=== PATIENT | female | born 1980 | race Caucasian/White ===

== ENCOUNTER → 2016-10-15 | Outpatient (CLI) | payer OTHER ==
--- NOTE | 2016-10-15 23:17 | MR ---
EXAMINATION TYPE: MR lumbar spine wo con DATE OF EXAM: 10/15/2016 5:38 PM COMPARISON: 02/03/2012 HISTORY: Chronic back pain x5 years TECHNIQUE: Multiplanar, multisequence images of the lumbar spine were acquired. Findings The lumbar vertebra have normal alignment. There is slight decreased signal in the disks at L4-5 and L5-S1. There is no significant disc space narrowing. There are small posterior disc bulges at L4-5 an d L5-S1. There is developmentally adequate spinal canal. The neural foramina appear widely patent. Th ere is no spinal stenosis. There is no compression fracture. Posterior elements are intact. There is no paraspinal mass. Sacroiliac joints appear normal. IMPRESSION: Small posterior disc bulging at L4-5 and L5-S1. No spinal stenosis. No fracture. No significant fall e compared to old exam.
== END | disposition home or self-care (01) ==
LOC: RADMRIMAIN 17:00
PROVIDERS: ATTEND Family Medicine
DX: M51.17 Intervertebral disc disorders with radiculopathy, lumbosacral region (principal)
CPT/HCPCS: 72148

== ENCOUNTER 2016-12-07 21:05 | Emergency (ER) | payer OTHER ==
[2016-12-07] MEDS ORDERED: HYDROmorphone 1 MG/ML 1 ML SYRINGE IM STA ×2 (21:32→22:43)
--- NOTE | 2016-12-07 21:35 | ED ---
General Adult HPI - General Chief complaint: Back Pain/Injury Stated complaint: Back Pain Time Seen by Provider: 12/07/16 21:21 Source: patient, RN notes reviewed Mode of arrival: wheelchair Limitations: no limitations - History of Present Illness Initial comments: Patient 36-year-old female who presents emergency room today with a chief complaint of increased lower back pain. She does admit that it started this morning after she placed a bag of dog food and the trunk. She states she's been having increased pain in her lower back that she would down the right leg. States he feels down approximately the right calf. Denies any bowel or bladder incontinence or retention. Denies any saddle anesthesia. Patient does admit that she cut her [place], ibuprofen, ice, and heat at home with little relief of the symptoms. Patient does admit that symptoms are worse with certain movements of bending and twisting. She denies any other complaints or symptoms. Patient denies any recent fever, chills, shortness of breath, chest pain, abdominal pain, nausea or vomiting, dysuria or hematuria, constipation or diarrhea, headaches or visual changes, or any other complaints. - Related Data Home Medications Medication Instructions Recorded Confirmed Albuterol Inhaler [Ventolin Hfa 2 puff INHALATION RT-Q6H PRN 06/26/15 12/07/16 Inhaler] SUMAtriptan SUCCINATE [Imitrex] 100 mg PO BID PRN 06/26/15 12/07/16 HYDROcodone/APAP 7.5-325MG [[place] 1 tab PO QID PRN 12/07/16 12/07/16 7.5-325] Ibuprofen [Motrin] 800 mg PO TID PRN 12/07/16 12/07/16 Previous Rx's Medication Instructions Recorded Cyclobenzaprine [Flexeril] 10 mg PO TID #20 tab 12/07/16 Dexamethasone 0.75 mg PO DIRECTED #12 tablet 12/07/16 Allergies Allergy/AdvReac Type Severity Reaction Status Date / Time azithromycin [From Zithromax] Allergy Rash/Hives/ Verified 12/07/16 22:05 Swelling/Di arrhea venom-honey bee Allergy Swelling Verified 12/07/16 22:05 [bee venom (honey bee)] Review of Systems ROS Statement: Those systems with pertinent positive or pertinent negative responses have been documented in the HPI. ROS Other: All systems not noted in ROS Statement are negative. Past Medical History Past Medical History: Asthma Additional Past Medical History / Comment(s): migraines, HPV, PCOS History of Any Multi-Drug Resistant Organisms: None Reported Past Surgical History: No Surgical Hx Reported Additional Past Surgical History / Comment(s): oral surgery Past Anesthesia/Blood Transfusion Reactions: Previous Problems w/ Anesthesia Additional Past Anesthesia/Blood Transfusion Reaction / Comment(s): HAS NEVER RECEIVED ANESTHESIA. Past Psychological History: No Psychological Hx Reported, PTSD Smoking Status: Current every day smoker Past Alcohol Use History: Occasional Past Drug Use History: None Reported - Past Family History Mother Family Medical History: No Reported History General Exam - General Exam Comments Initial Comments: General: The patient is awake and alert, in no distress, and does not appear acutely ill. Neck: The neck is supple, there is no tenderness or JVD. Cardiovascular: There is a regular rate and rhythm. No murmur, rub or gallop is appreciated. Respiratory: Lungs are clear to auscultation, respirations are non-labored, breath sounds are equal. No wheezes, stridor, rales, or rhonchi. Gastrointestinal: Soft, non-distended, non-tender abdomen without masses or organomegaly noted. There is no rebound or guarding present. No CVA tenderness. Bowel sounds are unremarkable. Back: No appearance of the thoracic, lumbar spine. No step-offs forms appreciated. Patient does have mild tenderness lower lumbar from L3 to S1. Does have increased paravertebral tenderness on the right side of the lumbar spine in this area. Musculoskeletal: Normal ROM, no tenderness. Strength 5/5. Sensation intact. Pulses equal bilaterally 2+. Neurological: A&O x 3. CN II-XII intact, There are no obvious motor or sensory deficits. Coordination appears grossly intact. Speech is normal. Skin: Skin is warm and dry and no rashes or lesions are noted. Psychiatric: Cooperative, appropriate mood & affect, normal judgment. Limitations: no limitations Course Vital Signs 12/07/16 21:10 Temperature 97.4 F L Pulse Rate 85 Respiratory 20 Rate Blood Pressure 117/74 O2 Sat by Pulse 98 Oximetry Medical Decision Making - Medical Decision Making X-ray negative for any acute abnormalities. Patient of her musculature in the emergency room has declined. Does admit that she has Flexeril at home but is a prescription to take it as she takes routine testing through the [facility]. Patient is advised to have close follow-up family doctor. Advised to return if there is any bowel or bladder incontinence retention or increase or worsen his symptoms. She states understanding and is in agreement. Disposition Clinical Impression: Acute back pain Disposition: HOME SELF-CARE Condition: Good Instructions: Acute Low Back Pain (ED) Additional Instructions: Please use medication as discussed. Please follow-up with family doctor in the next 2 days. Please return to emergency room if the symptoms increase or worsen or for any other concerns. Prescriptions: Cyclobenzaprine [Flexeril] 10 mg PO TID #20 tab Dexamethasone 0.75 mg PO DIRECTED #12 tablet Referrals: Bossman Quinn MD [Primary Care Provider] - 1-2 days Time of Disposition: 22:44
--- NOTE | 2016-12-07 22:05 | XR ---
EXAMINATION TYPE: XR lumbar spine 2 or 3V DATE OF EXAM: 12/07/2016 COMPARISON: 08/20/2015 HISTORY: Chronic pain TECHNIQUE: 3 views FINDINGS: Lumbar vertebra have normal alignment. Disc spaces are normal. Posterior elements are intac t. Sacroiliac joints appear normal. IMPRESSION: Normal lumbar spine. No change.
[2016-12-07 23:04] VITALS: BP 118/71; PULSE 63; RESP 19; TEMP 98
== END 2016-12-07 23:04 | disposition home or self-care (01) ==
LOC: EC 21:05
DX: M54.5 Low back pain (principal); F17.200 Nicotine dependence, unspecified, uncomplicated; Z88.1 Allergy status to other antibiotic agents; Z91.030 Bee allergy status
CPT/HCPCS: 72100; 99283; 96372 ×2; J1170

== ENCOUNTER → 2017-09-29 | Outpatient (CLI) | payer BC ==
--- NOTE | 2017-09-29 15:46 | US ---
EXAMINATION TYPE: US pelvis complete transvag DATE OF EXAM: 09/29/2017 COMPARISON: 08/23/2014 CLINICAL HISTORY: R10.2 PELVIC PAIN. TECHNIQUE: . Transabdominal sonographic images of the pelvis were acquired. Transvaginal sonographi c images were medically necessary to better assess the following anatomy: Endometrium Date of LMP: 09/24/2017 EXAM MEASUREMENTS: Uterus: 7.1 x 3.0 x 4.2 cm Endometrial Stripe: 0.3 cm Right Ovary: 1.9 x 1.7 x 1.3 cm Left Ovary: 1.8 x 1.4 x 1.4 cm 1. Uterus: Anteverted small nabothian cyst 0.4 cm 2. Endometrium: fluid within 0.4 cm 3. Right Ovary: small follicular cyst 4. Left Ovary: small follicular cysts, largest 0.7x 0.7 x 0.7 cm 5. Bilateral Adnexa: wnl 6. Posterior cul-de-sac: wnl IMPRESSION: 1. A small amount of fluid in endometrium is nonspecific correlate with the patient's menstrual cycle . 2. Bilateral ovarian follicles.
== END | disposition home or self-care (01) ==
LOC: RADUSWWP 14:54
PROVIDERS: ATTEND Obstetrics & Gynecology
DX: R10.2 Pelvic and perineal pain (principal)
CPT/HCPCS: 76830; 76856

== ENCOUNTER → 2018-01-10 | Outpatient (CLI) | payer BC ==
[2018-01-10 12:28] LABS: Basophils % (A) 1 %; Eosinophils # (A) 0.1 k/uL (0-0.7); Eosinophils % (A) 2 %; HCT 39.5 % (34.0-46.0); HGB 12.5 gm/dL (11.4-16.0); Lymphocytes # (A) 1.8 k/uL (1.0-4.8); Lymphocytes % (A) 34 %; MCH 30.9 pg (25.0-35.0); MCHC 31.6 g/dL (31.0-37.0); MCV 97.9 fL (80.0-100.0); Mean Platelet Volume 7.9; Monocytes # (A) 0.3 k/uL (0-1.0); Monocytes % (A) 5 %; Neutrophils # (A) 2.9 k/uL (1.3-7.7); Neutrophils % (A) 57 %; Platelet Count 359 k/uL (150-450); RBC 4.03 m/uL (3.80-5.40); RDW 12.9 % (11.5-15.5); WBC 5.2 k/uL (3.8-10.6)
[2018-01-10 12:38] LABS: Anion Gap 3 mmol/L; Blood Urea Nitrogen 16 mg/dL (7-17); Calcium 9.2 mg/dL (8.4-10.2); Carbon Dioxide 25 mmol/L (22-30); Chloride 112 mmol/L (98-107); Glucose 93 mg/dL (74-99); Potassium 4.6 mmol/L (3.5-5.1); Sodium 140 mmol/L (137-145)
== END | disposition home or self-care (01) ==
LOC: LABWHC1 11:26
PROVIDERS: ATTEND Obstetrics & Gynecology
DX: Z01.812 Encounter for preprocedural laboratory examination (principal)
CPT/HCPCS: 36415; 80048; 85025

== ENCOUNTER 2018-01-20 08:16 | Observation (INO) | payer BC ==
[2018-01-12 11:00] VITALS: BMI 28.8
[~2018-01-20 08:16] MED LIST: DEXAMETHASONE SOD PHOSPHATE 10 MG/ML 1 ML VIAL IV ONE; HYDROmorphone 0.5 MG/0.5 ML SYRINGE IVP PRN; ONDANSETRON 4 MG/2 ML VIAL IVP ONE; ceFAZolin IN SWFI 2 GM/20 ML SYRINGE IVP ONE
--- NOTE | 2018-01-20 08:32 | P.HPOB ---
History of Present Illness H&P Date: 01/20/18 Chief Complaint: Pelvic pain: Post-ablative syndrome Maame is a 37-year-old female who underwent a NovaSure ablation and since that time has had severe pelvic pain. She also continues to have heavy bleeding and this is causing her significant amount of distress. She is unable to function when she is on her cycle due to the severity of both bleeding and her pain and often has to stay in bed. She is scheduled for a robotic-assisted laparoscopic hysterectomy possible SILVER and possible BSO. Risks/benefits/ alternatives to this procedure were discussed with the patient in detail and all questions were answered for her prior to proceeding to the operating room. Past Medical History Past Medical History: Asthma, Cancer, Musculoskeletal Disorder Additional Past Medical History / Comment(s): migraines, HPV, PCOS, hx. cervical cancer 1998, herniated disc History of Any Multi-Drug Resistant Organisms: None Reported Past Surgical History: No Surgical Hx Reported Additional Past Surgical History / Comment(s): oral surgery Past Anesthesia/Blood Transfusion Reactions: Previous Problems w/ Anesthesia Additional Past Anesthesia/Blood Transfusion Reaction / Comment(s): HAS NEVER RECEIVED ANESTHESIA. Smoking Status: Current every day smoker - Past Family History Mother Family Medical History: No Reported History Medications and Allergies Home Medications Medication Instructions Recorded Confirmed Type Albuterol Inhaler [Ventolin Hfa 2 puff INHALATION RT-Q6H PRN 06/26/15 01/12/18 History Inhaler] SUMAtriptan SUCCINATE [Imitrex] 100 mg PO BID PRN 06/26/15 01/12/18 History Ibuprofen [Motrin] 800 mg PO TID PRN 12/07/16 01/12/18 History Citalopram Hydrobromide [CeleXA] 40 mg PO HS 01/12/18 01/12/18 History OXcarbazepine [Trileptal] 300 mg PO BID 01/12/18 01/12/18 History Prazosin HCl 2 mg PO HS 01/12/18 01/12/18 History traZODone HCL 150 mg PO HS PRN 01/12/18 01/12/18 History Allergies Allergy/AdvReac Type Severity Reaction Status Date / Time azithromycin [From Zithromax] Allergy Rash/Hives/ Verified 01/12/18 10:32 Swelling/Di arrhea venom-honey bee Allergy Swelling Verified 01/12/18 10:32 [bee venom (honey bee)] Exam Osteopathic Statement: *. No significant issues noted on an osteopathic structural exam other than those noted in the History and Physical/Consult. - OBG Physical Exam Breast: both: normal (no masses) Abdomen: bowel sounds normal, no diffuse tenderness, no bruit present, no guarding noted, no hepatomegaly, no splenomegaly, no mass Vulva: both: normal Vagina: normal moisture, no discharge Cervix: no lesion, no discharge Uterus: normal size, normal contour Adnexa: both: normal Anus/Rectum: normal perianal skin, no rectal mass, no hemorrhoids, heme negative
[2018-01-20] MEDS ORDERED: LIDOCAINE 1% 20 ML VIAL (10MG/ML) FOR IV START INTRADERMA ONE ×2 (08:47→08:48)
[2018-01-20] MEDS: LACTATED RINGERS 1,000 ML IV SCH ×2 (08:49→14:20)
[2018-01-20] MEDS ORDERED: SUCCINYLCHOLINE CHLORIDE 100 MG/5 ML SYR IV ONE (09:32)
[2018-01-20] MEDS ORDERED: fentaNYL (PF) 50 MCG/ML 2 ML AMP ONE (09:32)
[2018-01-20] MEDS ORDERED: ACETAMINOPHEN IV (For NPO) 1,000 MG/100 ML VIAL ONE (09:32)
[2018-01-20] MEDS ORDERED: PROPOFOL 10 MG/ML 20 ML VIAL IV ONE (09:32)
[2018-01-20] MEDS ORDERED: ePHEDrine SULFATE/0.9% NACL/PF 50 MG/5 ML SYRINGE IV ONE (09:32)
[2018-01-20] MEDS ORDERED: ROCURONIUM BROMIDE 10 MG/ML 10 ML VIAL IV ONE (09:32)
[2018-01-20] MEDS ORDERED: LIDOCAINE 1% INJ 10MG/ML (20 ML MDV) ONE (09:32)
[2018-01-20] MEDS ORDERED: NEOSTIGMINE 1 MG/ML 10 ML VIAL ONE (09:32)
[2018-01-20] MEDS ORDERED: MIDAZOLAM 2 MG/2 ML VIAL ONE (09:32)
[2018-01-20] MEDS ORDERED: GLYCOPYRROLATE 0.2 MG/ML 2 ML VIAL ONE (09:32)
[2018-01-20] MEDS ORDERED: HYDROmorphone (PF) 1 MG/ML ONE (09:32)
[2018-01-20] MEDS ORDERED: LIDOCAINE 1% INJ 10MG/ML (20 ML MDV) SQ ONE ×2 (10:05)
[2018-01-20] MEDS ORDERED: LACTATED RINGERS 1,000 ML IV ONE (10:30)
[2018-01-20] MEDS ORDERED: ONDANSETRON 4 MG/2 ML VIAL IVP PRN (10:51)
[2018-01-20] MEDS ORDERED: Acetaminophen-Codeine 300-30mg TAB PO PRN ×2 (10:51)
[2018-01-20] MEDS ORDERED: SIMETHICONE 80 MG CHEWABLE PO PRN (10:51)
--- NOTE | 2018-01-20 10:57 | P.OP ---
Date of Procedure: 01/20/18 Preoperative Diagnosis: Pelvic pain and menorrhagia: Post ablative syndrome Postoperative Diagnosis: Same Procedure(s) Performed: Robotic-assisted laparoscopic hysterectomy Anesthesia: KEERTHI Surgeon: Albert House Marketing Underwriter #1: Emani Burns Estimated Blood Loss (ml): 10 IV fluids (ml): 1,200 Urine output (ml): 150 Pathology: other (Uterus and cervix) Condition: stable Disposition: floor Operative Findings: No gross pathology Description of Procedure: Patient was taken to the operating suite where a general anesthetic was found be adequate. She was prepped and draped in the normal sterile fashion and placed in dorsal lithotomy position. Initially a weighted speculum was inserted into the vagina and the anterior lip of the cervix was identified and grasped with single-tooth tenaculum. Uterus was then sounded to 7 cm and cervix was dilated. Sutures were placed at 3 and 9. Lydia manipulator was then inserted without difficulty and a Bahena cath was placed. Other incidents were then removed and gloves were changed and attention was turned to the abdominal portion procedure where 2 mL of quarter percent Marcaine was injected periumbilically. Through this injected anesthetic a 5 mm skin incision was made and through this incision under direct visualization with an optical trocar and sleeve the camera was inserted. Once peritoneal placement was assured gas was left fully insufflate the abdomen and patient was then placed in steep Trendelenburg position. 2 lateral ports were then placed approximately 12 cm lateral to the umbilicus. These were made through 8 mm skin incisions and da Dallin ports were placed. Fourth port and sleeve was then inserted through a 1 cm incision between the left lateral and the medial port. And the medial port was then exchanged for a da Dallin port and sleeve. Robot was then brought in and docked. Once this was accomplished I did break scrub and go to the tonsil. Once the console observations the pelvis were noted and the uterus was anteverted and tipped to the right side. Left utero-ovarian ligament was then identified cauterized and cut mesosalpinx tissue and tube were then cauterized and cut and then the round ligament was cauterized transected and anterior and posterior leafs the broad ligament were developed. Bladder flap was then identified and undermined with [place] grasper and incised with the Metzenbaum. This opening was then extended across of the face of the uterus and the bladder was bluntly dissected out of the operative field. [place] was then used to cauterize the vascularity on the left side. Right side of the uterus was then addressed and in a similar fashion developed. Once this was accomplished uterus was pushed all the way in an retroverted and the balloon was blown up and manipulator. Anterior colpotomy was then made and then cheating head when necessary to maintain excellent hemostasis the Metzenbaum was used with monopolar to follow the blue cup in a 360 fashion until the cervix and vagina were . Uterus was then brought into the vagina for maintaining pneumoperitoneum. Pelvis was then irrigated and any small bleeders were addressed to obtain excellent hemostasis. Instruments were then exchanged for Efrain grasper and a make suture cut and using 20 the lock suture the vaginal cuff was closed in a running fashion. Pelvis was then thoroughly irrigated and then instruments were removed and gas was allowed to expel from the abdomen. 5 deep breaths were provided during this process. Dr. Burns close the incisions with 4-0 Vicryl and I did a cystoscopy verify good flow from both ureteral jets. Once accomplished all instruments were removed. Sponge, lap, needle counts were all correct 2. Patient was then taken to the recovery room in stable and satisfactory condition.
[2018-01-20] MEDS ORDERED: fentaNYL (PF) 50 MCG/ML 2 ML AMP IVP ONE ×2 (11:17→11:32)
[2018-01-20] MEDS: diphenhydrAMINE 50 MG/ML 1 ML VIAL IVP ONE ×2 (11:39→11:48)
[2018-01-20] MEDS: MEPERIDINE 50 MG/ML SYRINGE IVP ONE ×2 (11:42→11:49)
[2018-01-20] MEDS: KETOROLAC 30 MG/ML 1 ML VIAL IVP PRN ×2 (12:48→18:39)
[2018-01-20] MEDS ORDERED: MORPHINE SULFATE 4 MG/ML SYRINGE IVP PRN (14:58)
[2018-01-20] MEDS: HYDROcodone/APAP 7.5-325MG 1 EACH TAB PO PRN (20:19)
[2018-01-20 20:46] VITALS: BP 102/62; PULSE 74; RESP 16; TEMP 98.5
[2018-01-21] MEDS: HYDROcodone/APAP 7.5-325MG 1 EACH TAB PO PRN ×2 (02:35→08:32)
[2018-01-21] MEDS: KETOROLAC 30 MG/ML 1 ML VIAL IVP PRN ×2 (02:35→08:33)
--- NOTE | 2018-01-21 07:33 | P.DS ---
Providers Date of admission: 01/20/18 23:58 Expected date of discharge: 01/21/18 Attending physician: Albert House Primary care physician: [facility] Course: Overall Maame is doing very well postop day 1. She is ambulating, voiding, and she is tolerating her diet and she also is passing flatus. Involuting in the halls without difficulty. Voices no points of the generalized pain secondary to surgery. Her vital signs are stable and afebrile. Heart regular, lungs clear, extremities without pain. Abdomen is soft bowel sounds are noted and incisions are intact. Assessment postop day 1. Plan discharged home follow up with me in 1 week. Prescription for [place] was sent to the pharmacy. Discharge instructions are thoroughly reviewed and all questions are answered for her prior to her discharge. She is stable for discharge at this time. Patient Condition at Discharge: Good Plan - Discharge Summary Discharge Rx Participant: Yes New Discharge Prescriptions: New HYDROcodone/APAP 5-325MG [[place] 5-325] 1 tab PO Q4HR PRN 3 Days #18 tab PRN Reason: Pain No Action Albuterol Inhaler [Ventolin Hfa Inhaler] 2 puff INHALATION RT-Q6H PRN PRN Reason: Shortness Of Breath SUMAtriptan SUCCINATE [Imitrex] 100 mg PO BID PRN PRN Reason: Migraine Headache Ibuprofen [Motrin] 800 mg PO TID PRN PRN Reason: Pain OXcarbazepine [Trileptal] 300 mg PO BID Citalopram Hydrobromide [CeleXA] 40 mg PO HS traZODone HCL 150 mg PO HS PRN PRN Reason: sleep Prazosin HCl 2 mg PO HS Discharge Medication List Albuterol Inhaler [Ventolin Hfa Inhaler] 2 puff INHALATION RT-Q6H PRN 06/26/15 [ History] SUMAtriptan SUCCINATE [Imitrex] 100 mg PO BID PRN 06/26/15 [History] Ibuprofen [Motrin] 800 mg PO TID PRN 12/07/16 [History] Citalopram Hydrobromide [CeleXA] 40 mg PO HS 01/12/18 [History] OXcarbazepine [Trileptal] 300 mg PO BID 01/12/18 [History] Prazosin HCl 2 mg PO HS 01/12/18 [History] traZODone HCL 150 mg PO HS PRN 01/12/18 [History] HYDROcodone/APAP 5-325MG [[place] 5-325] 1 tab PO Q4HR PRN 3 Days #18 tab [Rx] Follow up Appointment(s)/Referral(s): Albert House DO [Doctor of Osteopathic Medicine] - 1 Week Activity/Diet/Wound Care/Special Instructions: No heavy lifting, Limit stairs and driving, and pelvic rest. If any high temperatures, heavy bleeding, or severe pain call my office Discharge Disposition: HOME SELF-CARE
== END 2018-01-21 09:15 | disposition home or self-care (01) ==
LOC: OR 08:16 → 6PED 10:45 → OR 23:58
PROVIDERS: ADMIT Obstetrics & Gynecology; ATTEND Obstetrics & Gynecology
DX: N87.9 Dysplasia of cervix uteri, unspecified (principal); N80.0 Endometriosis of uterus; N72 Inflammatory disease of cervix uteri; J45.909 Unspecified asthma, uncomplicated; E28.2 Polycystic ovarian syndrome; N94.89 Other specified conditions associated with female genital organs and menstrual cycle; Z98.890 Other specified postprocedural states; G43.909 Migraine, unspecified, not intractable, without status migrainosus; F17.200 Nicotine dependence, unspecified, uncomplicated; Z79.899 Other long term (current) drug therapy; Z88.1 Allergy status to other antibiotic agents; Z91.030 Bee allergy status; Z86.19 Personal history of other infectious and parasitic diseases; Z85.41 Personal history of malignant neoplasm of cervix uteri
CPT/HCPCS: 58570; S2900; 81025; 84703; 86850; 86900; 86901; 88307

== ENCOUNTER 2018-04-25 09:15 | Emergency (ER) | payer OTHER, BC ==
[2018-04-25 09:22] VITALS: RESP 18; TEMP 98.9
[2018-04-25] MEDS ORDERED: SODIUM CHLORIDE 0.9% 1,000 ML IV STA (09:46)
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
[2018-04-25] MEDS ORDERED: ONDANSETRON 4 MG/2 ML VIAL IVP STA (09:58)
[2018-04-25 10:25] LABS: Basophils # (A) 0.1 k/uL (0-0.2); Basophils % (A) 1 %; Eosinophils # (A) 0.1 k/uL (0-0.7); Eosinophils % (A) 1 %; HCT 42.1 % (34.0-46.0); HGB 13.8 gm/dL (11.4-16.0); Lymphocytes # (A) 1.8 k/uL (1.0-4.8); Lymphocytes % (A) 28 %; MCH 32.4 pg (25.0-35.0); MCHC 32.9 g/dL (31.0-37.0); MCV 98.6 fL (80.0-100.0); Mean Platelet Volume 6.7; Monocytes # (A) 0.4 k/uL (0-1.0); Monocytes % (A) 6 %; Neutrophils # (A) 4.1 k/uL (1.3-7.7); Neutrophils % (A) 62 %; Platelet Count 409 k/uL (150-450); RBC 4.27 m/uL (3.80-5.40); RDW 12.7 % (11.5-15.5); WBC 6.6 k/uL (3.8-10.6)
[2018-04-25 10:38] LABS: Anion Gap 8 mmol/L; Blood Urea Nitrogen 18 mg/dL (7-17); Calcium 9.2 mg/dL (8.4-10.2); Carbon Dioxide 20 mmol/L (22-30); Chloride 112 mmol/L (98-107); Glucose 99 mg/dL (74-99); Sodium 140 mmol/L (137-145); Total Bilirubin 0.5 mg/dL (0.2-1.3); Total Protein 7.2 g/dL (6.3-8.2)
[2018-04-25 10:41] LABS: ALT 21 U/L (9-52); AST 25 U/L (14-36); Alkaline Phosphatase 62 U/L (38-126); Potassium 4.5 mmol/L (3.5-5.1)
[2018-04-25 10:43] LABS: Partial Thromboplastin Time 23.5 sec (22.0-30.0); Prothrombin Time 9.9 sec (9.0-12.0)
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
[2018-04-25 11:08] VITALS: BP 143/87; PULSE 70
== END 2018-04-25 11:18 | disposition home or self-care (01) ==
LOC: EC 09:15
DX: S06.0X0A Concussion without loss of consciousness, initial encounter (principal); S00.83XA Contusion of other part of head, initial encounter; J45.909 Unspecified asthma, uncomplicated; F17.200 Nicotine dependence, unspecified, uncomplicated; Z79.899 Other long term (current) drug therapy; Z88.1 Allergy status to other antibiotic agents; Z91.030 Bee allergy status; V49.40XA Driver injured in collision with unspecified motor vehicles in traffic accident, initial encounter; W22.11XA Striking against or struck by driver side automobile airbag, initial encounter; Y92.410 Unspecified street and highway as the place of occurrence of the external cause
CPT/HCPCS: 36415; 80053; 85025; 85610; 85730; 72125; 70486; 70450; 71260; 74177; 99284; 96374; 96361; J2405; Q9967

== ENCOUNTER 2018-10-25 19:47 | Emergency (ER) | payer BC ==
[2018-10-25] MEDS ORDERED: KETOROLAC 30 MG/ML 1 ML VIAL IVP STA (21:22)
[2018-10-25] MEDS ORDERED: DEXAMETHASONE SOD PHOSPHATE 10 MG/ML 1 ML VIAL IM STA (21:23)
[2018-10-25] MEDS ORDERED: KETOROLAC 30 MG/ML 1 ML VIAL IM STA (22:13)
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
[2018-10-25] MEDS ORDERED: ONDANSETRON 4 MG/2 ML VIAL IVP STA (22:40)
[2018-10-25] MEDS ORDERED: MORPHINE SULFATE 4 MG/ML SYRINGE IVP STA (22:54)
[2018-10-25] MEDS ORDERED: DIAZEPAM 5 MG/ML 2 ML INJ IVP STA (23:57)
[2018-10-26 00:12] LABS: Basophils % (A) 0 %; Eosinophils # (A) 0.1 k/uL (0-0.7); Eosinophils % (A) 1 %; HGB 13.2 gm/dL (11.4-16.0); Lymphocytes # (A) 1.6 k/uL (1.0-4.8); Lymphocytes % (A) 17 %; MCH 31.7 pg (25.0-35.0); MCHC 32.9 g/dL (31.0-37.0); MCV 96.4 fL (80.0-100.0); Mean Platelet Volume 7.6; Monocytes # (A) 0.3 k/uL (0-1.0); Monocytes % (A) 3 %; Neutrophils % (A) 77 %; Platelet Count 339 k/uL (150-450); RBC 4.15 m/uL (3.80-5.40); RDW 14.2 % (11.5-15.5); WBC 9.1 k/uL (3.8-10.6)
[2018-10-26 00:21] LABS: ALT 21 U/L (9-52); AST 15 U/L (14-36); Albumin 4.1 g/dL (3.5-5.0); Alkaline Phosphatase 61 U/L (38-126); Anion Gap 8 mmol/L; Blood Urea Nitrogen 11 mg/dL (7-17); Calcium 9.4 mg/dL (8.4-10.2); Carbon Dioxide 20 mmol/L (22-30); Chloride 110 mmol/L (98-107); Glucose 102 mg/dL (74-99); Sodium 138 mmol/L (137-145); Total Bilirubin 0.4 mg/dL (0.2-1.3); Total Protein 6.9 g/dL (6.3-8.2)
--- NOTE | 2018-10-26 00:39 | CT ---
EXAM: CT Abdomen and Pelvis With Intravenous Contrast CLINICAL HISTORY: ITS.REASON CT Reason: Pain TECHNIQUE: Axial computed tomography images of the abdomen and pelvis with intravenous contrast. CTDI is 17.8 mGy and DLP is 1104 mGy-cm. This CT exam was performed using one or more of the following dose reduction techniques: automated exposure control, adjustment of the mA and/or kV according to patient size, and/or use of iterative reconstruction technique. COMPARISON: CT chest/abdomen/pelvis on 04/25/2018 FINDINGS: Liver: Probable focal fat along the falciform ligament. Hepatomegaly versus Benitez's lobe configuration. Spleen: Normal. No focal lesion. Gallbladder: Normal. No stones or biliary dilatation. Pancreas: Normal. No acute inflammation. No mass. Adrenal glands: Normal. No mass. Kidneys: Normal. No hydronephrosis or obstructing stone. No mass. Bowel: Diverticulosis without evidence of diverticulitis. Normal appendix. Decompressed sigmoid colon and descending colon. Fluid and gas-filled small bowel loops are nonspecific but may represent enteritis or ileus in the appropriate clinical setting. No bowel obstruction or inflammation. Urinary bladder: Normal. No wall thickening or mass. Reproductive organs: Prior hysterectomy. Muscles: No mass. Subcutaneous tissues: Small fat-containing umbilical hernia. Peritoneal space: Normal. No free fluid. Lymph nodes: Normal. No lymphadenopathy. Vessels: Normal. No aneurysm or dissection. Bones: Mild degenerative changes of the spine. No acute fracture or bony lesion. Lung bases: Mild bibasilar atelectasis. IMPRESSION: 1. Fluid and gas-filled small bowel loops are nonspecific but could represent enteritis or ileus in the appropriate clinical setting. 2. No other acute abnormality in the abdomen or pelvis.
--- NOTE | 2018-10-26 00:43 | CT ---
EXAM: CT Lumbar Spine With Intravenous Contrast CLINICAL HISTORY: ITS.REASON CT Reason: Pain TECHNIQUE: Axial computed tomography images of the lumbar spine with intravenous contrast. CTDI is 18.6 mGy and DLP is 638.3 mGy-cm. This CT exam was performed using one or more of the following dose reduction techniques: automated exposure control, adjustment of the mA and/or kV according to patient size, and/or use of iterative reconstruction technique. COMPARISON: MRI lumbar spine on 10/15/2016 FINDINGS: Bones: Normal alignment. No acute fracture or bony lesion. Disc spaces: No subluxation. Mild disc bulges at L3-4 and L4-5 and L5- S1 without significant spinal canal stenosis. Mild bilateral neural foraminal stenoses at L5-S1. Soft tissues: Normal. IMPRESSION: No acute fracture or subluxation. Mild degenerative changes of the lumbar spine. No significant spinal canal stenosis. Mild bilateral neural foraminal stenoses at L5-S1.
[2018-10-26 01:08] VITALS: BP 129/90; PULSE 61; RESP 18; TEMP 97.8
[2018-10-26 01:34] LABS: Appearance,Urine Clear (Clear); Bilirubin,Urine Negative (Negative); Blood,Urine Negative (Negative); Color,Urine Light Yellow; Glucose,Urine (UA) Negative (Negative); Ketones,Urine Negative (Negative); Leukocyte Esterase,Urine Trace (Negative); Mucus,Urine Rare /hpf; Nitrite,Urine Negative (Negative); PH, Urine 5.5 (5.0-8.0); Protein,Urine Negative (Negative); RBC,Urine 2 /hpf (0-5); Specific Gravity,Urine 1.021 (1.001-1.035); Urobilinogen,Urine <2.0 mg/dL (<2.0); WBC,Urine 2 /hpf (0-5)
== END 2018-10-26 01:34 | disposition home or self-care (01) ==
LOC: EC 19:47
DX: M54.5 Low back pain (principal); R11.0 Nausea; J45.909 Unspecified asthma, uncomplicated; F17.200 Nicotine dependence, unspecified, uncomplicated; Z71.6 Tobacco abuse counseling; Z79.899 Other long term (current) drug therapy; Z88.1 Allergy status to other antibiotic agents; Z91.030 Bee allergy status
CPT/HCPCS: 99284; 96374; 96375 ×2; 96372 ×2; J2270; J1100; J2405; J1885; 36415; 72132; 74177; 80053; 81001; 85025

== ENCOUNTER 2019-01-18 17:25 | Emergency (ER) | payer BC ==
[2019-01-18 17:42] VITALS: RESP 18
[2019-01-18] MEDS ORDERED: METOCLOPRAMIDE 5 MG/ML 2 ML VIAL IVP STA (18:06)
[2019-01-18] MEDS ORDERED: diphenhydrAMINE 50 MG/ML 1 ML VIAL IVP STA (18:06)
[2019-01-18] MEDS ORDERED: SODIUM CHLORIDE 0.9% 1,000 ML IV STA (18:06)
[2019-01-18] MEDS ORDERED: ACETAMINOPHEN TAB 500 MG TAB PO STA (18:06)
--- NOTE | 2019-01-18 18:32 | CT ---
EXAMINATION TYPE: CT brain wo con DATE OF EXAM: 01/18/2019 COMPARISON: 04/25/2018 HISTORY: Migrane and nausea CT DLP: 1111.4 mGycm. Automated Exposure Control for Dose Reduction was Utilized. TECHNIQUE: CT scan of the head is performed without contrast. FINDINGS: Ventricles have normal size. There is no mass effect nor midline shift. There is no sign of intracranial hemorrhage. Calvarium is intact. Skull base appears intact. IMPRESSION: Negative CT scan of the brain. No change.
[2019-01-18] MEDS ORDERED: KETOROLAC 30 MG/ML 1 ML VIAL IVP STA (18:44)
--- NOTE | 2019-01-18 18:48 | ED ---
General Adult HPI - General Chief complaint: Headache Stated complaint: Migraine Time Seen by Provider: 01/18/19 17:51 Source: patient, RN notes reviewed Mode of arrival: ambulatory Limitations: no limitations - History of Present Illness Initial comments: 38-year-old female with a past medical history of asthma, migraines, PCOS, hysterectomy presents to the emergency department for a chief complaint of headache. Patient states that this started gradually 3 days ago and has progressively worsened. States that it is across her forehead and to the back of her head bilaterally. Admits to photophobia. Admits to nausea denies vomiting. Patient states she has had similar headaches in the past although this one is lasting longer and feels a little bit worse than normal. Denies any alleviating or aggravating factors. States she usually has a prescription for Imitrex but has not taken this in a while due to improvement in her headaches however has this prescription at the pharmacy right now. States she has also been on antibiotics due to a sinus infection. States this was just started a few days ago. Patient has no other complaints at this time including shortness of breath, chest pain, abdominal pain, nausea or vomiting, or visual changes. - Related Data Home Medications Medication Instructions Recorded Confirmed Albuterol Inhaler [Ventolin Hfa 2 puff INHALATION RT-Q6H PRN 06/26/15 10/25/18 Inhaler] Baclofen 5 mg PO TID PRN 10/25/18 10/25/18 Dextroamphetamine/Amphetamine 20 mg PO QAM 10/25/18 10/25/18 [Adderall Xr] HYDROcodone/APAP 5-325MG [[place] 1 tab PO Q6HR PRN 10/25/18 10/25/18 5-325] Ibuprofen [Motrin] 800 mg PO Q6HR PRN 10/25/18 10/25/18 Sertraline [Zoloft] 100 mg PO HS 10/25/18 10/25/18 lamoTRIgine [LaMICtal] 100 mg PO DAILY 10/25/18 10/25/18 Previous Rx's Medication Instructions Recorded Ondansetron Odt [Zofran Odt] 4 mg PO Q8HR PRN #10 tab 10/26/18 Allergies Allergy/AdvReac Type Severity Reaction Status Date / Time azithromycin [From Zithromax] Allergy Rash/Hives/ Verified 01/18/19 17:38 Swelling/Di arrhea venom-honey bee Allergy Swelling Verified 01/18/19 17:38 [bee venom (honey bee)] Review of Systems ROS Statement: Those systems with pertinent positive or pertinent negative responses have been documented in the HPI. ROS Other: All systems not noted in ROS Statement are negative. Past Medical History Past Medical History: Asthma Additional Past Medical History / Comment(s): migraines, HPV, PCOS History of Any Multi-Drug Resistant Organisms: None Reported Past Surgical History: Hysterectomy Additional Past Surgical History / Comment(s): oral surgery Past Anesthesia/Blood Transfusion Reactions: Previous Problems w/ Anesthesia Additional Past Anesthesia/Blood Transfusion Reaction / Comment(s): HAS NEVER RECEIVED ANESTHESIA. Past Psychological History: Anxiety, Depression, PTSD Smoking Status: Current every day smoker Past Alcohol Use History: Occasional Past Drug Use History: None Reported - Past Family History Mother Family Medical History: No Reported History General Exam Limitations: no limitations General appearance: alert, anxious Head exam: Present: atraumatic, normocephalic, normal inspection Eye exam: Present: normal appearance, PERRL, EOMI. Absent: scleral icterus, conjunctival injection, periorbital swelling ENT exam: Present: normal exam, normal oropharynx, mucous membranes moist, TM's normal bilaterally, normal external ear exam Neck exam: Present: normal inspection, full ROM. Absent: tenderness, meningismus, lymphadenopathy Respiratory exam: Present: normal lung sounds bilaterally. Absent: respiratory distress, wheezes, rales, rhonchi, stridor Cardiovascular Exam: Present: regular rate, normal rhythm, normal heart sounds. Absent: systolic murmur, diastolic murmur, rubs, gallop, clicks Neurological exam: Present: alert, oriented X3, CN II-XII intact, normal gait, other (GCS 15) Expanded Patient oriented to: Present: person, place, time Speech: Present: fluid speech Cranial nerves: EOM's Intact: Normal, Tongue Deviation: Normal, Nystagmus: Normal, Facial Sensation: Normal Cerebellar function: Finger to Nose: Normal Upper motor neuron: Pronator Drift: Normal Sensory exam: Upper Extremity Light Touch: Normal, Upper Extremity Pin Prick: Normal, Lower Extremity Light Touch: Normal, Lower Extremity Pin Prick: Normal Motor strength exam: RUE: 5, LUE: 5, RLE: 5, LLE: 5 Eye Response: (4) open spontaneously Motor Response: (6) obeys commands Verbal Response: (5) oriented [place] Total: 15 Psychiatric exam: Present: normal affect, normal mood Course Vital Signs 01/18/19 17:40 Temperature 98 F Pulse Rate 90 Respiratory 18 Rate Blood Pressure 119/83 O2 Sat by Pulse 98 Oximetry Medical Decision Making - Medical Decision Making 38-year-old female with a past medical history of migraines presents for headache. Started 3 days ago with a gradual onset. No neurologic deficits on exam. Admits to photophobia. Admits to nausea. States this headache feels consistent with previous migraines. States she usually takes Imitrex for her prescriptions at the pharmacy. Patient also has a sinus condition [place] is on antibiotics. Vitals are stable, CT shows negative computed tomography scan of the brain. Patient was initially given migraine cocktail, had improvement of symptoms from a 9 to an 8 on the pain scale. She was given a second migraine cocktail and had improvement from an 8 to a 4. I did offer patient a sphenopalatine teen nerve block which she refused stating "it's not that bad." Patient will be discharged home to follow up with primary care. Recommended return if she has any worsening symptoms. Disposition Clinical Impression: Migraine headache Disposition: HOME SELF-CARE Condition: Good Instructions (If sedation given, give patient instructions): Migraine Headache (ED) Additional Instructions: Please take your migraine medications at home. Please follow-up with primary care in 1-2 days. Return if you have any worsening symptoms. Is patient prescribed a controlled substance at d/c from ED?: No Referrals: Olaf Chappell MD [Primary Care Provider] - 1-2 days Time of Disposition: 20:17
[2019-01-18] MEDS ORDERED: DEXAMETHASONE SOD PHOSPHATE 10 MG/ML 1 ML VIAL IV STA (19:03)
[2019-01-18] MEDS ORDERED: SUMAtriptan SUCCINATE 6 MG/0.5 ML VIAL SQ STA (19:03)
[2019-01-18] MEDS ORDERED: LIDOCAINE 1% INJ 10MG/ML (20 ML MDV) SQ ONE (19:30)
[2019-01-18 20:44] VITALS: BP 123/80; PULSE 56; TEMP 97.9
--- NOTE | 2019-01-23 08:08 | CDI ---
Documentation Clarification OP Dear Cayden DE GUZMAN, PAC Please provide procedure done related to lidocaine administered. Thank you, Rolo Tian Sheet Ironworker If you have any questions, please contact [employer] at [phone] Lidocaine was ultimately not used on this patient as she refused procedure after lidocaine was ordered. MTDD
== END 2019-01-18 20:47 | disposition home or self-care (01) ==
LOC: EC 17:25
DX: G43.909 Migraine, unspecified, not intractable, without status migrainosus (principal); J45.909 Unspecified asthma, uncomplicated; F41.9 Anxiety disorder, unspecified; F32.9 Major depressive disorder, single episode, unspecified; F43.10 Post-traumatic stress disorder, unspecified; F17.200 Nicotine dependence, unspecified, uncomplicated; Z53.29 Procedure and treatment not carried out because of patient's decision for other reasons; Z79.899 Other long term (current) drug therapy; Z88.1 Allergy status to other antibiotic agents; Z91.030 Bee allergy status
CPT/HCPCS: 99284; 96374; 96375 ×3; 96361; 96372; 70450; J3030; J1200; J1100; J2765; J2001; J1885

== ENCOUNTER 2020-03-25 17:21 | Inpatient (IN) | payer BC, OTHER ==
[2020-03-25] MEDS ORDERED: SODIUM CHLORIDE 0.9% 1,000 ML IV STA ×2 (17:46)
[2020-03-25] MEDS ORDERED: MORPHINE SULFATE 4 MG/ML SYRINGE IV STA (17:46)
--- NOTE | 2020-03-25 17:50 | ED ---
Skin/Abscess/FB HPI - General Chief complaint: Skin/Abscess/Foreign Body Stated complaint: MRSA Time Seen by Provider: 03/25/20 17:45 Source: patient, RN notes reviewed, old records reviewed Mode of arrival: ambulatory - History of Present Illness Initial comments: This is a 39-year-old female DF for evaluation known history of MRSA coming in with right knee infection, being treated as an outpatient for MRSA on 2 different antibiotics with clindamycin and Bactrim with no improvement in symptoms, patient is continued drainage and abscess formation. Cellulitis and pain. Patient has full range of motion of the knee has no fevers MD complaint: abscess/boil, discoloration, other (Cellulitis to right knee) -: week(s) Tetanus Up to Date: yes Location: RLE (Right knee) Severity: moderate Severity scale (1-10): 4 Quality: aching Consistency: constant Improves with: none Worsens with: none Context: new medication, recent antibiotic Associated symptoms: denies other symptoms - Related Data Home Medications Medication Instructions Recorded Confirmed Albuterol Inhaler (Mhu) [Ventolin 2 puff INHALATION RT-Q6H PRN 06/26/15 10/25/18 Hfa Inhaler] Baclofen 5 mg PO TID PRN 10/25/18 10/25/18 Dextroamphetamine/Amphetamine 20 mg PO QAM 10/25/18 10/25/18 [Adderall Xr] HYDROcodone/APAP 5-325MG [[place] 1 tab PO Q6HR PRN 10/25/18 10/25/18 5-325] Ibuprofen [Motrin] 800 mg PO Q6HR PRN 10/25/18 10/25/18 Sertraline [Zoloft] 100 mg PO HS 10/25/18 10/25/18 lamoTRIgine [LaMICtal] 100 mg PO DAILY 10/25/18 10/25/18 Previous Rx's Medication Instructions Recorded Ondansetron Odt [Zofran Odt] 4 mg PO Q8HR PRN #10 tab 10/26/18 Allergies Allergy/AdvReac Type Severity Reaction Status Date / Time azithromycin [From Zithromax] Allergy Rash/Hives/ Verified 03/25/20 17:38 Swelling/Di arrhea venom-honey bee Allergy Swelling Verified 03/25/20 17:38 [bee venom (honey bee)] Review of Systems ROS Statement: Those systems with pertinent positive or pertinent negative responses have been documented in the HPI. ROS Other: All systems not noted in ROS Statement are negative. Past Medical History Past Medical History: Asthma Additional Past Medical History / Comment(s): migraines, HPV, PCOS History of Any Multi-Drug Resistant Organisms: None Reported Past Surgical History: Hysterectomy Additional Past Surgical History / Comment(s): oral surgery Past Anesthesia/Blood Transfusion Reactions: Previous Problems w/ Anesthesia Additional Past Anesthesia/Blood Transfusion Reaction / Comment(s): HAS NEVER RECEIVED ANESTHESIA. Past Psychological History: Anxiety, Depression, PTSD Smoking Status: Current every day smoker Past Alcohol Use History: Occasional Past Drug Use History: None Reported - Past Family History Mother Family Medical History: No Reported History General Exam General appearance: alert, in no apparent distress Head exam: Present: atraumatic, normocephalic, normal inspection Eye exam: Present: normal appearance, PERRL, EOMI. Absent: scleral icterus, conjunctival injection, periorbital swelling ENT exam: Present: normal exam, mucous membranes moist Neck exam: Present: normal inspection. Absent: tenderness, meningismus, lymphadenopathy Respiratory exam: Present: normal lung sounds bilaterally. Absent: respiratory distress, wheezes, rales, rhonchi, stridor Cardiovascular Exam: Present: regular rate, normal rhythm, normal heart sounds. Absent: systolic murmur, diastolic murmur, rubs, gallop, clicks GI/Abdominal exam: Present: soft, normal bowel sounds. Absent: distended, tenderness, guarding, rebound, rigid Extremities exam: Present: normal inspection, full ROM, normal capillary refill, other (Right knee is swollen has some surrounding erythema and redness palpation of the full range of motion, patient has multiple open draining wounds, purulence). Absent: tenderness, pedal edema, joint swelling, calf tenderness Back exam: Present: normal inspection Neurological exam: Present: alert, oriented X3, CN II-XII intact Psychiatric exam: Present: normal affect, normal mood Skin exam: Present: warm, dry, intact, normal color. Absent: rash Course Vital Signs 03/25/20 17:35 Temperature 98.6 F Pulse Rate 73 Respiratory 18 Rate Blood Pressure 147/80 O2 Sat by Pulse 100 Oximetry - Reevaluation(s) Reevaluation #1: 03/25/20 19:05 Medical record is reviewed Reevaluation #2: 03/25/20 19:06 Patient is in no significant distress does admit to some mild knee pain Reevaluation #3: 03/25/20 19:06 Spoke patient regarding findings she is agreeable and questions are answered - Consultations Consultation #1: Spoke with Dr. Chappell who agrees to admit this patient Medical Decision Making - Medical Decision Making 39 female with failure of outpatient treatment and she has been on 2 different antibiotics for about a week of right knee abscess abscess is draining but also starting cellulitis [place] for IV antibiotics and wound care - Lab Data Result diagrams: 03/25/20 17:59 03/25/20 17:59 Lab Results 03/25/20 03/25/20 03/25/20 Range/Units 17:59 17:59 17:59 WBC 7.8 (3.8-10.6) k/uL RBC 4.34 (3.80-5.40) m/uL Hgb 14.5 (11.4-16.0) gm/dL Hct 43.8 (34.0-46.0) % MCV 100.9 H (80.0-100.0) fL MCH 33.4 (25.0-35.0) pg MCHC 33.1 (31.0-37.0) g/dL RDW 12.4 (11.5-15.5) % Plt Count 533 H (150-450) k/uL Neutrophils % 48 % Lymphocytes % 41 % Monocytes % 6 % Eosinophils % 2 % Basophils % 1 % Neutrophils # 3.8 (1.3-7.7) k/uL Lymphocytes # 3.2 (1.0-4.8) k/uL Monocytes # 0.5 (0-1.0) k/uL Eosinophils # 0.2 (0-0.7) k/uL Basophils # 0.1 (0-0.2) k/uL PT 9.4 (9.0-12.0) sec INR 0.9 (<1.2) APTT 24.3 (22.0-30.0) sec Sodium 142 (137-145) mmol/L Potassium 3.9 (3.5-5.1) mmol/L Chloride 109 H (98-107) mmol/L Carbon Dioxide 24 (22-30) mmol/L Anion Gap 9 mmol/L BUN 16 (7-17) mg/dL Creatinine 0.66 (0.52-1.04) mg/dL Est GFR (CKD-EPI)AfAm >90 (>60 ml/min/1.73 sqM) Est GFR (CKD-EPI)NonAf >90 (>60 ml/min/1.73 sqM) Glucose 114 H (74-99) mg/dL Plasma Lactic Acid Gilberto (0.7-2.0) mmol/L Calcium 9.9 (8.4-10.2) mg/dL Phosphorus 3.3 (2.5-4.5) mg/dL Magnesium 2.2 (1.6-2.3) mg/dL Total Bilirubin 0.2 (0.2-1.3) mg/dL AST 20 (14-36) U/L ALT 14 (4-34) U/L Alkaline Phosphatase 95 (38-126) U/L Creatine Kinase 104 (30-135) U/L Total Protein 7.4 (6.3-8.2) g/dL Albumin 4.0 (3.5-5.0) g/dL 03/25/20 Range/Units 17:59 WBC (3.8-10.6) k/uL RBC (3.80-5.40) m/uL Hgb (11.4-16.0) gm/dL Hct (34.0-46.0) % MCV (80.0-100.0) fL MCH (25.0-35.0) pg MCHC (31.0-37.0) g/dL RDW (11.5-15.5) % Plt Count (150-450) k/uL Neutrophils % % Lymphocytes % % Monocytes % % Eosinophils % % Basophils % % Neutrophils # (1.3-7.7) k/uL Lymphocytes # (1.0-4.8) k/uL Monocytes # (0-1.0) k/uL Eosinophils # (0-0.7) k/uL Basophils # (0-0.2) k/uL PT (9.0-12.0) sec INR (<1.2) APTT (22.0-30.0) sec Sodium (137-145) mmol/L Potassium (3.5-5.1) mmol/L Chloride (98-107) mmol/L Carbon Dioxide (22-30) mmol/L Anion Gap mmol/L BUN (7-17) mg/dL Creatinine (0.52-1.04) mg/dL Est GFR (CKD-EPI)AfAm (>60 ml/min/1.73 sqM) Est GFR (CKD-EPI)NonAf (>60 ml/min/1.73 sqM) Glucose (74-99) mg/dL Plasma Lactic Acid Gilberto 2.4 H* (0.7-2.0) mmol/L Calcium (8.4-10.2) mg/dL Phosphorus (2.5-4.5) mg/dL Magnesium (1.6-2.3) mg/dL Total Bilirubin (0.2-1.3) mg/dL AST (14-36) U/L ALT (4-34) U/L Alkaline Phosphatase (38-126) U/L Creatine Kinase (30-135) U/L Total Protein (6.3-8.2) g/dL Albumin (3.5-5.0) g/dL - EKG Data -: EKG Interpreted by Me (EKG shows sinus rhythm 72 MD 162 QRS 78 QTc 435) - Radiology Data Radiology results: report reviewed (X-ray knee is negative for acute disease), image reviewed Disposition Clinical Impression: Cellulitis of right knee, Abscess of right knee Disposition: ADMITTED IP TO THIS [facility] Condition: Good Is patient prescribed a controlled substance at d/c from ED?: No Referrals: Olaf Chappell MD [Primary Care Provider] - 1-2 days
[2020-03-25 18:31] LABS: Basophils # (A) 0.1 k/uL (0-0.2); Basophils % (A) 1 %; Eosinophils # (A) 0.2 k/uL (0-0.7); Eosinophils % (A) 2 %; HCT 43.8 % (34.0-46.0); HGB 14.5 gm/dL (11.4-16.0); Lymphocytes # (A) 3.2 k/uL (1.0-4.8); Lymphocytes % (A) 41 %; MCH 33.4 pg (25.0-35.0); MCHC 33.1 g/dL (31.0-37.0); MCV 100.9 fL (80.0-100.0); Mean Platelet Volume 7.3; Monocytes # (A) 0.5 k/uL (0-1.0); Monocytes % (A) 6 %; Neutrophils # (A) 3.8 k/uL (1.3-7.7); Neutrophils % (A) 48 %; Platelet Count 533 k/uL (150-450); RBC 4.34 m/uL (3.80-5.40); RDW 12.4 % (11.5-15.5); WBC 7.8 k/uL (3.8-10.6)
[2020-03-25 18:39] LABS: ALT 14 U/L (4-34); AST 20 U/L (14-36); African American GFR (CKD) >90 (>60 ml/min/1.73 sqM); Alkaline Phosphatase 95 U/L (38-126); Anion Gap 9 mmol/L; Blood Urea Nitrogen 16 mg/dL (7-17); Calcium 9.9 mg/dL (8.4-10.2); Carbon Dioxide 24 mmol/L (22-30); Chloride 109 mmol/L (98-107); Creatine Kinase 104 U/L (30-135); Glucose 114 mg/dL (74-99); INR 0.9 (<1.2); Magnesium 2.2 mg/dL (1.6-2.3); Non-African American GFR(CKD) >90 (>60 ml/min/1.73 sqM); Partial Thromboplastin Time 24.3 sec (22.0-30.0); Phosphorus 3.3 mg/dL (2.5-4.5); Potassium 3.9 mmol/L (3.5-5.1); Prothrombin Time 9.4 sec (9.0-12.0); Sodium 142 mmol/L (137-145); Total Bilirubin 0.2 mg/dL (0.2-1.3); Total Protein 7.4 g/dL (6.3-8.2)
[2020-03-25] MEDS ORDERED: SODIUM CHLORIDE 0.9% 1,000 ML IV ONE (20:10)
[2020-03-25] MEDS: MORPHINE SULFATE 4 MG/ML SYRINGE IVP PRN (20:38)
--- NOTE | 2020-03-25 20:52 | XR ---
Result: History: Pain status post patella wound. Comparison: None available. Technique: 3 views of the right knee. Findings: No acute fracture or dislocation is seen. The visualized osseous structures are in anatomic alignmen t. The joint spaces are preserved. There is no significant knee joint effusion. There is prepatella r soft tissue edema. No radiopaque foreign body. Impression: Prepatellar soft tissue edema without acute osseous abnormality or radiopaque foreign body.
[2020-03-25] MEDS ORDERED: VANCOMYCIN IV PER PHARMACY 1 EACH MISC MISCELLANE PRN (23:07)
[2020-03-25] MEDS ORDERED: ALPRAZolam 0.25 MG TAB PO PRN (23:08)
[2020-03-25] MEDS ORDERED: AMPHETAMINE PO PRN (23:08)
[2020-03-25] MEDS ORDERED: QUEtiapine 25 MG TAB PO PRN (23:08)
[2020-03-25] MEDS ORDERED: DEXTROAMPHETAMINE PO PRN (23:08)
[2020-03-25] MEDS: HYDROcodone/APAP 10-325MG 1 EACH TAB PO PRN (23:28)
[2020-03-25] MEDS: lamoTRIgine 100 MG TAB PO SCH (23:29)
[2020-03-25] MEDS: NICOTINE 21MG/24HR PATCH TRANSDERM SCH (23:30)
[2020-03-25] MEDS: SERTRALINE 100 MG TAB PO SCH (23:31)
[2020-03-25] MEDS: VANCOMYCIN 1,250 MG in SODIUM CHLORIDE 0.9% 250 ML IVPB SCH (23:32)
[2020-03-26] MEDS: MORPHINE SULFATE 4 MG/ML SYRINGE IVP PRN ×3 (02:39→20:25)
[2020-03-26] MEDS: HYDROcodone/APAP 10-325MG 1 EACH TAB PO PRN ×4 (04:32→22:40)
[2020-03-26] MEDS ORDERED: CLINDAMYCIN 150 MG CAP PO SCH (09:00)
[2020-03-26] MEDS ORDERED: ERGOCALCIFEROL 50,000 UNIT CAP PO SCH (09:00)
[2020-03-26] MEDS: buPROPion SR 150 MG TABLET.ER PO SCH ×2 (10:00→20:54)
[2020-03-26] MEDS: Dextroamphetamine/Amphetamine [Adderall] 10 MG Tablet PO SCH (10:02)
[2020-03-26] MEDS: NICOTINE 21MG/24HR PATCH TRANSDERM SCH ×2 (10:02→20:25)
[2020-03-26] MEDS: SERTRALINE 100 MG TAB PO SCH ×2 (10:02→20:54)
[2020-03-26] MEDS ORDERED: HYDROcodone/APAP 5-325MG 1 EACH TAB PO PRN (10:39)
[2020-03-26] MEDS: VANCOMYCIN 1,250 MG in SODIUM CHLORIDE 0.9% 250 ML IVPB SCH (11:26)
--- NOTE | 2020-03-26 14:53 | P.CNOR ---
History of Present Illness - [facility] Consult date: 03/26/20 Consult reason: other History of present illness: patient is a pleasant 39-year-old female seen at bedside assessment consultation for right knee abscess. She states states she developed an abscess in her right knee around March 25, 2020. She does not recall an injury or inciting incident. She's had continued redness, swelling and drainage and pain at the anterior aspect of the right knee. She has failed outpatient oral antibiotic therapy. She was admitted yesterday, March 25, 2020 and started on IV antibiotics. She continues to have pain at the anterior aspect of the right knee. She's currently denying fever or chills. She denies numbness or tingling or calf pain. She denies illicit drug use. She denies other complaints. Review of Systems All systems: negative Constitutional: Denies chills, Denies fever Eyes: denies blurred vision, denies pain Ears, nose, mouth and throat: Denies headache, Denies sore throat Cardiovascular: Denies chest pain, Denies shortness of breath Respiratory: Denies cough Gastrointestinal: Denies abdominal pain, Denies diarrhea, Denies nausea, Denies vomiting Genitourinary: Denies dysuria, Denies hematuria Musculoskeletal: Denies myalgias Integumentary: Denies pruritus, Denies rash Neurological: Denies numbness, Denies weakness Psychiatric: Denies anxiety, Denies depression Endocrine: Denies fatigue, Denies weight change Past Medical History Past Medical History: Asthma Additional Past Medical History / Comment(s): migraines, HPV, Polycystic Ovarian Syndrome History of Any Multi-Drug Resistant Organisms: None Reported Past Surgical History: Hysterectomy Additional Past Surgical History / Comment(s): oral surgery Past Anesthesia/Blood Transfusion Reactions: No Reported Reaction Additional Past Anesthesia/Blood Transfusion Reaction / Comm: HAS NEVER RECEIVED ANESTHESIA. Past Psychological History: Anxiety, Depression, PTSD Smoking Status: Current every day smoker Past Alcohol Use History: Occasional Additional Past Alcohol Use History / Comment(s): started smoking age 17. SMOKES 1 PPD. HAS BEEN SMOKING FOR 17 YRS. occasional alcohol use Past Drug Use History: None Reported - Past Family History Mother Family Medical History: No Reported History Medications and Allergies Home Medications Medication Instructions Recorded Confirmed Type Dextroamphetamine/Amphetamine 20 mg PO DAILY PRN 10/25/18 03/25/20 History [Adderall Xr] HYDROcodone/APAP 5-325MG [[place] 1 tab PO DAILY PRN 10/25/18 03/25/20 History 5-325] Sertraline [Zoloft] 100 mg PO DAILY 10/25/18 03/25/20 History ALPRAZolam [Xanax] 0.25 mg PO DAILY PRN 03/25/20 03/25/20 History Dextroamphetamine/Amphetamine 10 mg PO DAILY 03/25/20 03/25/20 History [Adderall] Ergocalciferol [Vitamin D2 50,000 unit PO Q14D 03/25/20 03/25/20 History (DRISDOL)] Nicotine 21Mg/24Hr Patch [Habitrol] 21 mg TOPICAL DAILY 03/25/20 03/25/20 History QUEtiapine [SEROquel] 25 - 50 mg PO HS PRN 03/25/20 03/25/20 History buPROPion HCL [buPROPion HCL SR] 150 mg PO BID 03/25/20 03/25/20 History clindamycin HCL [Cleocin] 300 mg PO TID 03/25/20 03/25/20 History lamoTRIgine [LaMICtal] 150 mg PO HS 03/25/20 03/25/20 History Allergies Allergy/AdvReac Type Severity Reaction Status Date / Time azithromycin [From Zithromax] Allergy Rash/Hives/ Verified 03/25/20 17:38 Swelling/Di arrhea venom-honey bee Allergy Swelling Verified 03/25/20 17:38 [bee venom (honey bee)] Physical Examination Inspection of the right lower extremity and right knee show open abscess measuring approximately the size of a dime. There is no active bleeding. There is mild erythema around the anterior aspect of the knee but it does not extend proximal or distal. There is no apparent knee effusion. The knee is warm to touch. She has pain with flexion to 120 extension is full. Pain is at the anterior aspect of the knee not the joint itself. Knee appears ligamentously stable. The calf is nontender. Neurovascular status intact with motor and sensation to the right lower extremity. 2+ dorsalis pedis pulse was 2 second capillary refill is present. Results knee x-ray shows no fractures or foreign body. no gas in the soft tissue. - Labs Labs: Abnormal Lab Results - Last 24 Hours (Table) 1003/25/20 03/25/20 Range/Units 17:59 17:59 17:59 MCV 100.9 H (80.0-100.0) fL Plt Count 533 H (150-450) k/uL Chloride 109 H (98-107) mmol/L Glucose 114 H (74-99) mg/dL Plasma Lactic Acid Gilberto 2.4 H* (0.7-2.0) mmol/L C-Reactive Protein (<10.0) mg/L 03/25/20 Range/Units 19:12 MCV (80.0-100.0) fL Plt Count (150-450) k/uL Chloride (98-107) mmol/L Glucose (74-99) mg/dL Plasma Lactic Acid Gilberto (0.7-2.0) mmol/L C-Reactive Protein 39.3 H (<10.0) mg/L H & H 03/25/20 Range/Units 17:59 Hgb 14.5 (11.4-16.0) gm/dL Hct 43.8 (34.0-46.0) % Coagulation 03/25/20 Range/Units 17:59 INR 0.9 (<1.2) Result Diagrams: 03/25/20 17:59 03/25/20 17:59 - Diagnostic results Knee x-ray: report reviewed, image reviewed Assessment and Plan (1) Abscess of right knee Narrative/Plan: It appears she has a focal superficial infection/abcess of the prepatellar bursa area. She has been on IV vancomycin for less than 24 hours. There is no evidence progression or joint involvement. Her white blood cell count is normal and she is afebrile. We'll continue to monitor her clinically as well as await culture results. Should she not improve and/or worsen we may consider I&D but will monitor her progress for now. She may do wound soaks or washes with warm soapy water. Continue wound care and antibiotic coverage per infectious disease. We will continue to follow. Thank you. Current Visit: Yes Status: Acute Priority: Medium Code(s): L02.415 - CUTANEOUS ABSCESS OF RIGHT LOWER LIMB SNOMED Code(s): 57873351 (2) Cellulitis of right knee Current Visit: Yes Status: Acute Priority: Medium Code(s): L03.115 - CELLULITIS OF RIGHT LOWER LIMB SNOMED Code(s): 50171761623199810 Time with Patient: Less than 30
--- NOTE | 2020-03-26 18:18 | PN ---
PROGRESS NOTE DATE OF SERVICE: 03/26/2020 CHIEF COMPLAINT: MRSA cellulitis and furunculosis of the right anterior knee. HISTORY OF PRESENT ILLNESS: This lady is doing well. She has had no fever or chills. Cellulitis has started to recede. PHYSICAL EXAMINATION: There is no effusion. Inflammation in the right knee is definitely improved. The distal leg is normal with good range of motion, sensation and pulses. IMPRESSION: Methicillin-resistant Staphylococcus aeruginosa cellulitis and furunculosis of the right knee. PLAN: Continue with elevation, IV fluids and IV vancomycin. MMODL / IJN: [id number] /
--- NOTE | 2020-03-26 18:18 | HP ---
HISTORY AND PHYSICAL CHIEF COMPLAINT: Progressive infection in the anterior knee. HISTORY OF PRESENT ILLNESS: This is the first known admission for this 39-year-old white female. She came to the office on originally on March 21 after she developed an infection in the right anterior knee over the patella. She was treated at [facility] and given Bactrim DS and came in on March 21 with the infection getting worse. It looked as though there may have been some loculated purulence, which was sharply drained. She was then changed over to clindamycin and came back several days later with the knee being much worse. The cellulitis had extended and there were several areas where purulence was draining. She had no chills or fever. She was admitted for IV antibiotics/vancomycin. REVIEW OF SYSTEMS: She has otherwise not had any trouble. She has had no headaches, neurologic problems, chest pain, cough, shortness of breath, palpitations, heart disease, abdominal pain, nausea, vomiting, hematemesis, melena, hematochezia, jaundice, hepatitis, cirrhosis, hematuria, frequency, urgency, incontinence, renal failure, diabetes, etc. Past medical history, family history, and personal and social histories reveal that she is ALLERGIC TO ZITHROMAX. Medications include: 1. ProAir 2 puffs q.i.d. p.r.n. 2. Bupropion 150 mg twice a day. 3. Nicotine transdermal patches. 4. Xanax 0.25 once a day p.r.n. 5. Lamictal 150 once a day. 6. Zoloft 100 mg once a day. 7. Seroquel 25 mg at night. 8. Adderall 20 mg once a day. 9. Vitamin D 50,000 units a month. 10.Ibuprofen 800 mg q.i.d. p.r.n. Her past history reveals that she has had some trouble with migraines. Surgically she has had a hysterectomy. She does smoke about a pack of cigarettes a day. PHYSICAL EXAMINATION: Temperature is 99, pulse 86, blood pressure 104/68. In general she appeared to be well developed, well nourished, in no acute distress. Skin color was normal. Skin was warm and dry. Lymph nodes were not enlarged. Head, ears, eyes, nose, mouth and throat were normal. Neck veins were not distended. Thyroid was not enlarged. Chest was clear. Cardiac exam demonstrated sinus rhythm and no murmurs or extra sounds. Abdomen was soft, nontender without visceromegaly or masses. Bowel sounds were present. Extremities were normal except for the cellulitis and purulent pustular areas in the right anterior knee. There was no effusion and range of motion was normal. IMPRESSION: Methicillin-resistant Staphylococcus aeruginosa cellulitis and furunculosis of the right knee. PLAN: 1. Bed rest. 2. IV fluids. 3. IV vancomycin. 4. Infectious disease consult. MMODL / IJN: [id number] /
[2020-03-26] MEDS: lamoTRIgine 100 MG TAB PO SCH (20:25)
--- NOTE | 2020-03-26 21:53 | P.CONS ---
History of Present Illness - Reason for Consult Consult date: 03/26/20 Right knee cellulitis Requesting physician: Olaf Chappell - Chief Complaint Right knee pain swelling and redness x 1 week - History of Present Illness Patient is 39 year female presenting to the ER yesterday for evaluation of persistent right knee pain swelling redness and the wound patient mentioned started having area of irritation on the right anterior knee area more than a week ago denies any history of any trauma and may have started as small pimple in the area started getting more swollen and red and painful patient described the pain to be throbbing with intensity of almost 781 fin and no radiation patient has been evaluated in the outpatient setting by the primary care physician with the area has been draining and the patient has been treated with the Bactrim DS and clindamycin on reevaluation he is scheduled to have persistent infection and nonhealing and the patient was advised to the hospital patient was evaluated by the ER physician on the patient is afebrile did have a normal white count patient did have x-rays of the right gluteal tissues prepatellar soft tissue edema without acute bony abnormality or radiopaque foreign body patient was started on vancomycin and infectious disease was consulted for further management of antibiotic therapy Review of Systems Positive point has been mentioned in the HPI rest of the systems are negative Past Medical History Past Medical History: Asthma Additional Past Medical History / Comment(s): migraines, HPV, Polycystic Ovarian Syndrome History of Any Multi-Drug Resistant Organisms: None Reported Past Surgical History: Hysterectomy Additional Past Surgical History / Comment(s): oral surgery Past Anesthesia/Blood Transfusion Reactions: No Reported Reaction Additional Past Anesthesia/Blood Transfusion Reaction / Comm: HAS NEVER RECEIVED ANESTHESIA. Past Psychological History: Anxiety, Depression, PTSD Smoking Status: Current every day smoker Past Alcohol Use History: Occasional Additional Past Alcohol Use History / Comment(s): started smoking age 17. SMOKES 1 PPD. HAS BEEN SMOKING FOR 17 YRS. occasional alcohol use Past Drug Use History: None Reported - Past Family History Mother Family Medical History: No Reported History Medications and Allergies Home Medications Medication Instructions Recorded Confirmed Type Dextroamphetamine/Amphetamine 20 mg PO DAILY PRN 10/25/18 03/25/20 History [Adderall Xr] HYDROcodone/APAP 5-325MG [[place] 1 tab PO DAILY PRN 10/25/18 03/25/20 History 5-325] Sertraline [Zoloft] 100 mg PO DAILY 10/25/18 03/25/20 History ALPRAZolam [Xanax] 0.25 mg PO DAILY PRN 03/25/20 03/25/20 History Dextroamphetamine/Amphetamine 10 mg PO DAILY 03/25/20 03/25/20 History [Adderall] Ergocalciferol [Vitamin D2 50,000 unit PO Q14D 03/25/20 03/25/20 History (DRISDOL)] Nicotine 21Mg/24Hr Patch [Habitrol] 21 mg TOPICAL DAILY 03/25/20 03/25/20 History QUEtiapine [SEROquel] 25 - 50 mg PO HS PRN 03/25/20 03/25/20 History buPROPion HCL [buPROPion HCL SR] 150 mg PO BID 03/25/20 03/25/20 History clindamycin HCL [Cleocin] 300 mg PO TID 03/25/20 03/25/20 History lamoTRIgine [LaMICtal] 150 mg PO HS 03/25/20 03/25/20 History Allergies Allergy/AdvReac Type Severity Reaction Status Date / Time azithromycin [From Zithromax] Allergy Rash/Hives/ Verified 03/25/20 17:38 Swelling/Di arrhea venom-honey bee Allergy Swelling Verified 03/25/20 17:38 [bee venom (honey bee)] Physical Exam Vitals: Vital Signs Temp Pulse Pulse Resp BP BP Pulse Ox 03/26/20 08:00 18 03/26/20 07:46 98.6 F 82 18 109/70 97 03/26/20 00:50 98.1 F 88 99/55 97 03/25/20 22:06 98.5 F 87 16 121/73 96 03/25/20 21:41 87 16 03/25/20 17:35 98.6 F 73 18 147/80 100 Intake and Output 03/25/20 03/26/20 03/26/20 22:59 06:59 14:59 Intake Total 220 Balance 220 Intake: Oral 220 Other: # Voids 1 Weight 70.307 kg GENERAL DESCRIPTION: Middle-aged female lying in bed, no distress. No tachypnea or accessory muscle of respiration use. HEENT: Shows Pallor , no scleral icterus. Oral mucous membrane is dry. No pharyngeal erythema or thrush NECK: Trachea central, no thyromegaly. LUNGS: Unlabored breathing. Clear to auscultation anteriorly. No wheeze or crackle. HEART: S1, S2, regular rate and rhythm. No loud murmur ABDOMEN: Soft, no tenderness , guarding or rigidity, no organomegaly EXTREMITIES: No edema of feet. Right anterior knee area did have a superficial ulceration. Patient did have swelling and redness no purulent drainage and tender to touch SKIN: No rash, no masses palpable. NEUROLOGICAL: The patient is awake, alert, oriented x3, mood and affect normal. Results CBC & Chem 7: 03/25/20 17:59 03/25/20 17:59 Labs: Abnormal Lab Results - Last 24 Hours (Table) 03/25/20 03/25/20 03/25/20 Range/Units 17:59 17:59 17:59 MCV 100.9 H (80.0-100.0) fL Plt Count 533 H (150-450) k/uL Chloride 109 H (98-107) mmol/L Glucose 114 H (74-99) mg/dL Plasma Lactic Acid Gilberto 2.4 H* (0.7-2.0) mmol/L C-Reactive Protein (<10.0) mg/L 03/25/20 Range/Units 19:12 MCV (80.0-100.0) fL Plt Count (150-450) k/uL Chloride (98-107) mmol/L Glucose (74-99) mg/dL Plasma Lactic Acid Gilberto (0.7-2.0) mmol/L C-Reactive Protein 39.3 H (<10.0) mg/L Assessment and Plan Assessment: 1-patient with right anterior knee area pain swelling and redness status post I&D by primary care physician in outpatient setting and the patient has not healed with oral Bactrim and clindamycin therapy feeling outpatient oral antibiotics with concern for prepatellar bursitis and currently outpatient culture positive for MRSA (1) Prepatellar bursitis, right knee Current Visit: Yes Status: Acute Code(s): M70.41 - PREPATELLAR BURSITIS, RIGHT KNEE SNOMED Code(s): 31010910 (2) MRSA (methicillin resistant Staphylococcus aureus) infection Current Visit: Yes Status: Acute Code(s): A49.02 - METHICILLIN RESIS STAPH INFECTION, UNSP SITE SNOMED Code(s): 138988377 Plan: 1- Vancomycin pharmacy to dose target trough of 15 while watching kidney function and Vanco trough closely 2-patient will benefit from orthopedic evaluation possible bursectomy and I&D Will follow on a clinical condition and cultures to further adjust medication if needed Thank you for this consultation will follow this patient along with you Time with Patient: Greater than 30
[2020-03-27] MEDS: VANCOMYCIN 1,250 MG in SODIUM CHLORIDE 0.9% 250 ML IVPB SCH ×2 (00:05→11:29)
[2020-03-27] MEDS: HYDROcodone/APAP 10-325MG 1 EACH TAB PO PRN ×4 (05:44→22:17)
[2020-03-27 06:06] LABS: African American GFR (CKD) >90 (>60 ml/min/1.73 sqM); Non-African American GFR(CKD) >90 (>60 ml/min/1.73 sqM)
[2020-03-27] MEDS: buPROPion SR 150 MG TABLET.ER PO SCH ×2 (09:26→20:38)
[2020-03-27] MEDS: Dextroamphetamine/Amphetamine [Adderall] 10 MG Tablet PO SCH (11:28)
--- NOTE | 2020-03-27 14:00 | P.PN ---
Subjective Progress Note Date: 03/27/20 Principal diagnosis: Right knee abcess/cellulitis Patient is seen at bedside this afternoon. We are following her for right knee prepatellar bursitis/cellulitis/superficial abscess. She feels it has overall improved over the past few days. She is currently receiving IV Vancomycin. She has pain at the anterior knee. She denies pain inside of the knee with ROM. She denies calf pain, numbness, fever, chills, sweating, chest pain, shortness of breath or other. Objective - Vital Signs Vital signs: Vital Signs Temp 98.2 F 03/27/20 12:07 Pulse 74 03/27/20 12:07 Resp 20 03/27/20 12:07 BP 126/81 03/27/20 12:07 Pulse Ox 98 03/27/20 12:07 Intake & Output 03/26/20 03/27/20 03/27/20 18:59 06:59 18:59 Intake Total 220 890 Balance 220 890 Intake: Intake, IV Titration 250 Amount Vancomycin 1,250 mg In 250 Sodium Chloride 0.9% 250 ml @ 125 mls/hr IVPB Q12H [facility] Rx#:[id number] Oral 220 640 Other: # Voids 1 2 1 - Exam Inspection of the right knee shows improving erythema about the prepatellar area. There is a dime-sized superficial abscess with smaller satellite lesions. It is not actively draining or bleeding. There is no obvious fluid collection or fluctuance in the deep or surrounding tissue. There is no progressive erythema. There is no knee effusion. There is tenderness at the anterior knee. There is no pain at the medial or lateral joint line. She can flex to 110 and extend to 0 degrees respectively with no joint pain. The calf is SNT. 2+ DP pulse and less than 2 sec cap refill present. - Constitutional General appearance: Present: no acute distress - Labs CBC & Chem 7: 03/25/20 17:59 03/27/20 05:37 Labs: Microbiology - Last 24 Hours (Table) 03/25/20 17:59 Blood Culture - Preliminary Blood No Growth after 24 hours Assessment and Plan (1) Abscess of right knee Narrative/Plan: It appears her superficial infection/cellultis/abcess of the prepatellar bursa area is stable/improving. She has continued on IV vancomycin. There is no evidence progression or joint involvement. Her white blood cell count continues to be normal and she is afebrile. Blood cultures are negative thus far. CRP is mildly elevated as well as lactic acid. We'll continue to monitor her clinically. She will be placed NPO after midnight and reassess in the am to make further decision regarding possible I and D at that time. Recommend continued wound care and saline or warm soapy irrigations a few times a day. Antibiotic coverage and further care per infectious disease and primary team. We will cont inue to follow. Patient has been discussed with Dr. Brandt. Current Visit: Yes Status: Acute Priority: Medium Code(s): L02.415 - CUTANEOUS ABSCESS OF RIGHT LOWER LIMB SNOMED Code(s): 93211746 (2) Cellulitis of right knee Current Visit: Yes Status: Acute Priority: Medium Code(s): L03.115 - CELLULITIS OF RIGHT LOWER LIMB SNOMED Code(s): 77937235878627969 Time with Patient: Less than 30
[2020-03-27] MEDS: MORPHINE SULFATE 4 MG/ML SYRINGE IVP PRN (16:08)
[2020-03-27] MEDS: KETOROLAC 15 MG/ML 1 ML VIAL IVP PRN (18:33)
[2020-03-27] MEDS: lamoTRIgine 100 MG TAB PO SCH (20:38)
[2020-03-27] MEDS: SERTRALINE 100 MG TAB PO SCH (20:39)
[2020-03-27] MEDS: NICOTINE 21MG/24HR PATCH TRANSDERM SCH (20:39)
--- NOTE | 2020-03-27 22:39 | PN ---
PROGRESS NOTE DATE OF SERVICE: 03/27/2020 CHIEF COMPLAINT: MRSA cellulitis and abscess of the right knee. HISTORY OF PRESENT ILLNESS: This lady is doing fairly well. The knee is not particularly painful for her at the present time. She has had fever and chills. PHYSICAL EXAMINATION: Cellulitis and redness seem to be slowly receding. There are still several areas of open infected ulceration with some purulent drainage. IMPRESSION: Methicillin-resistant Staphylococcus aeruginosa cellulitis and abscess of the right anterior knee. PLAN: Continue with IV vancomycin. MMODL / IJN: [id number] /
[2020-03-28] MEDS: VANCOMYCIN 1,250 MG in SODIUM CHLORIDE 0.9% 250 ML IVPB SCH ×2 (00:24→11:48)
[2020-03-28] MEDS: KETOROLAC 15 MG/ML 1 ML VIAL IVP PRN ×3 (05:51→18:26)
[2020-03-28 07:16] LABS: African American GFR (CKD) >90 (>60 ml/min/1.73 sqM); Non-African American GFR(CKD) >90 (>60 ml/min/1.73 sqM)
[2020-03-28] MEDS: Dextroamphetamine/Amphetamine [Adderall] 10 MG Tablet PO SCH (07:34)
[2020-03-28] MEDS: buPROPion SR 150 MG TABLET.ER PO SCH ×2 (09:55→21:10)
[2020-03-28] MEDS ORDERED: VANCOMYCIN TROUGH DUE 1 EACH MISC MISCELLANE ONE (10:30)
[2020-03-28] MEDS: HYDROcodone/APAP 10-325MG 1 EACH TAB PO PRN ×3 (10:31→21:10)
--- NOTE | 2020-03-28 12:07 | P.PN ---
Subjective Progress Note Date: 03/28/20 Principal diagnosis: Right knee abcess/cellulitis Patient is seen at bedside this morning by Dr. Brandt. We are following her for right knee prepatellar bursitis/cellulitis/superficial abscess. She feels it has continued to overall improve over the past few days. She is currently receiving IV Vancomycin. She has pain at the anterior knee. She denies pain inside of the knee with ROM. She denies calf pain, numbness, fever, chills, sweating, chest pain, shortness of breath or other. She has no new complaints Objective - Vital Signs Vital signs: Vital Signs Temp 97.8 F 03/28/20 08:49 Pulse 76 03/28/20 08:49 Resp 22 03/28/20 08:49 BP 128/74 03/28/20 08:49 Pulse Ox 96 03/28/20 08:49 Intake & Output 03/27/20 03/28/20 03/28/20 18:59 06:59 18:59 Intake Total 240 690 Balance 240 690 Intake: Intake, IV Titration 250 Amount Vancomycin 1,250 mg In 250 Sodium Chloride 0.9% 250 ml @ 125 mls/hr IVPB Q12H [facility] Rx#:[id number] Oral 240 440 Other: # Voids 1 2 1 - Exam Inspection of the right knee shows continued improvement of erythema about the prepatellar area and superficial abscess with smaller satellite lesions. It is not actively draining or bleeding. There is no obvious fluid collection or fluctuance in the deep or surrounding tissue. There is no progressive erythema. There is no knee effusion. There is tenderness at the anterior knee. There is no pain at the medial or lateral joint line. She can flex to 110 and extend to 0 degrees respectively with no joint pain. The calf is SNT. 2+ DP pulse and less than 2 sec cap refill present. - Constitutional General appearance: Present: no acute distress - Labs CBC & Chem 7: 03/25/20 17:59 03/28/20 06:42 Labs: Abnormal Lab Results - Last 24 Hours (Table) 03/28/20 Range/Units 06:42 Creatinine 0.50 L (0.52-1.04) mg/dL Microbiology - Last 24 Hours (Table) 03/25/20 17:59 Blood Culture - Preliminary Blood No Growth after 48 hours Assessment and Plan (1) Abscess of right knee Narrative/Plan: Her superficial infection/cellultis/abcess of the prepatellar bursa area continues to improve. She has continued on IV vancomycin. There is no evidence progression or joint involvement. Her white blood cell count continues to be normal and she is afebrile. Blood cultures are negative thus far. There are no plans for surgical intervention. Recommend continued wound care and saline or warm soapy irrigations a few times a day. Antibiotic coverage and further care per infectious disease and primary team. We will sign off from orthopedic standpoint. Thank you. Current Visit: Yes Status: Acute Priority: Medium Code(s): L02.415 - CUTANEOUS ABSCESS OF RIGHT LOWER LIMB SNOMED Code(s): 75276248 (2) Cellulitis of right knee Current Visit: Yes Status: Acute Priority: Medium Code(s): L03.115 - CELLULITIS OF RIGHT LOWER LIMB SNOMED Code(s): 20331111021557616 Time with Patient: Less than 30
[2020-03-28] MEDS ORDERED: VANCOMYCIN 1,250 MG in SODIUM CHLORIDE 0.9% 250 ML IVPB SCH (19:00)
[2020-03-28] MEDS: SERTRALINE 100 MG TAB PO SCH (21:10)
[2020-03-28] MEDS: lamoTRIgine 100 MG TAB PO SCH (21:11)
[2020-03-28] MEDS: NICOTINE 21MG/24HR PATCH TRANSDERM SCH (21:11)
[2020-03-28] MEDS ORDERED: diphenhydrAMINE 25 MG CAP PO PRN (22:33)
[2020-03-29] MEDS: KETOROLAC 15 MG/ML 1 ML VIAL IVP PRN (00:21)
[2020-03-29] MEDS: HYDROcodone/APAP 10-325MG 1 EACH TAB PO PRN ×2 (07:47→12:02)
[2020-03-29] MEDS: buPROPion SR 150 MG TABLET.ER PO SCH (08:57)
[2020-03-29] MEDS: Dextroamphetamine/Amphetamine [Adderall] 10 MG Tablet PO SCH (09:24)
[2020-03-29 09:57] LABS: African American GFR (CKD) >90 (>60 ml/min/1.73 sqM); Non-African American GFR(CKD) >90 (>60 ml/min/1.73 sqM)
[2020-03-29 13:43] VITALS: BP 132/79; PULSE 69; RESP 20; TEMP 98.3
[2020-03-29] MEDS ORDERED: IBUPROFEN 800 MG TAB PO PRN (14:52)
--- NOTE | 2020-03-30 16:15 | PN ---
PROGRESS NOTE DATE OF SERVICE: 03/28/2020. CHIEF COMPLAINT: MRSA cellulitis and ulcer of the right anterior knee. HISTORY OF PRESENT ILLNESS: This lady is doing fairly well. Her temperature has been down. She is having some discomfort. PHYSICAL EXAMINATION: Chest is clear. Cardiac exam is normal. Abdomen is soft, nontender. She is afebrile. The cellulitis in the right anterior knee is healing quite quickly and the largest ulcerated area is closing, but still has some necrotic tissue. IMPRESSION: MRSA abscess and cellulitis of the right anterior knee. PLAN: Continue with elevation, IV vancomycin, and fluids. This note was dictated late because the computer and telephone system in the office were out for 3 days. MMODL / IJN: [id number] /
--- NOTE | 2020-03-30 17:15 | DS ---
DISCHARGE SUMMARY CHIEF COMPLAINT: MRSA, cellulitis and abscess and ulcers of the right knee, failing outpatient treatment. HISTORY OF PRESENT ILLNESS AND PHYSICAL EXAMINATION: Details of this lady's history and physical can be found in the initial workup. LABORATORY STUDIES: While she was in the hospital, she had laboratory studies, details of which can be found in the laboratory section of her chart. COURSE IN THE HOSPITAL: After admission, she was placed on bedrest and started on intravenous fluids and IV vancomycin. She was seen by Infectious Disease. Cellulitic area and purulent drainage as well as the ulcers on the anterior knee were receding nicely. It was felt that she could go home on the and she will go home on her usual activity, usual medications, light activity and Bactrim DS along with mupirocin ointment twice a day and she will be seen in the office in 24 hours. FINAL DIAGNOSIS: Methicillin-resistant Staphylococcus aureus cellulitis and abscess of the right anterior knee, failing outpatient therapy. OPERATIONS: None. CONSULTATION: Infectious Disease. She is improved. MMODL / IJN: [id number] /
== END 2020-03-29 15:35 | disposition home or self-care (01) | DRG 603 ==
LOC: EC 17:21 → 4SSUR 20:10 → 6PED 03-26 10:26 → OBSVTOIN 03-28 10:53
PROVIDERS: ADMIT Family Medicine; ATTEND Family Medicine
DX: L03.115 Cellulitis of right lower limb (principal); L97.819 Non-pressure chronic ulcer of other part of right lower leg with unspecified severity; L02.415 Cutaneous abscess of right lower limb; B95.62 Methicillin resistant Staphylococcus aureus infection as the cause of diseases classified elsewhere; M70.41 Prepatellar bursitis, right knee; F17.210 Nicotine dependence, cigarettes, uncomplicated; F43.10 Post-traumatic stress disorder, unspecified; J45.909 Unspecified asthma, uncomplicated; F41.9 Anxiety disorder, unspecified; F32.9 Major depressive disorder, single episode, unspecified; G43.909 Migraine, unspecified, not intractable, without status migrainosus; E28.2 Polycystic ovarian syndrome; Z90.710 Acquired absence of both cervix and uterus; Z79.899 Other long term (current) drug therapy; Z88.1 Allergy status to other antibiotic agents; Z91.030 Bee allergy status; Z86.14 Personal history of Methicillin resistant Staphylococcus aureus infection
CPT/HCPCS: 36415; 80053; 80202; 82550; 82565; 83605; 83735; 84100; 84484; 85025; 85610; 85730; 86140; 87040; 93005; 96361; 96374; 96376; 99285

== ENCOUNTER 2022-12-29 22:51 | Emergency (ER) | payer OTHER ==
[2022-12-29 22:58] VITALS: BP 147/94; PULSE 95; RESP 18; TEMP 98.4
[2022-12-29] MEDS ORDERED: FAMOTIDINE 20 MG/2 ML VIAL IV STA (23:13)
[2022-12-29] MEDS ORDERED: DEXAMETHASONE SOD PHOSPHATE 10 MG/ML 1 ML VIAL IV STA (23:13)
--- NOTE | 2022-12-29 23:30 | ED ---
General Adult HPI - General Chief complaint: Allergic Reaction Stated complaint: Allergic reaction, SOB Source: patient, RN notes reviewed, old records reviewed Mode of arrival: ambulatory Limitations: no limitations - History of Present Illness Initial comments: 42-year-old female presenting for suspected ALLERGIC reaction. Patient was placed on Augmentin approximately one week ago. She had developed diarrhea with Augmentin and was switched to Ceftin she took her first dose at 6 PM and by approximately 9 PM she was developing some sensation of throat swelling and difficulty breathing. No vomiting. No rash. No tongue or lip swelling. Patient took Benadryl states she is feeling better at this time. - Related Data Home Medications Medication Instructions Recorded Confirmed Dextroamphetamine/Amphetamine 20 mg PO DAILY PRN 10/25/18 03/25/20 [Adderall Xr] HYDROcodone/APAP 5-325MG [Kingsley 1 tab PO DAILY PRN 10/25/18 03/25/20 5-325] Sertraline [Zoloft] 100 mg PO DAILY 10/25/18 03/25/20 ALPRAZolam [Xanax] 0.25 mg PO DAILY PRN 03/25/20 03/25/20 Dextroamphetamine/Amphetamine 10 mg PO DAILY 03/25/20 03/25/20 [Adderall] Ergocalciferol [Vitamin D2 50,000 unit PO Q14D 03/25/20 03/25/20 (DRISDOL)] Nicotine 21Mg/24Hr Patch [Habitrol] 21 mg TOPICAL DAILY 03/25/20 03/25/20 QUEtiapine [SEROquel] 25 - 50 mg PO HS PRN 03/25/20 03/25/20 buPROPion HCL [buPROPion HCL SR] 150 mg PO BID 03/25/20 03/25/20 clindamycin HCL [Cleocin] 300 mg PO TID 03/25/20 03/25/20 lamoTRIgine [LaMICtal] 150 mg PO HS 03/25/20 03/25/20 Allergies Allergy/AdvReac Type Severity Reaction Status Date / Time azithromycin [From Zithromax] Allergy Rash/Hives/ Verified 12/29/22 22:58 Swelling/Di arrhea venom-honey bee Allergy Swelling Verified 12/29/22 22:58 [bee venom (honey bee)] Review of Systems ROS Statement: Those systems with pertinent positive or pertinent negative responses have been documented in the HPI. ROS Other: All systems not noted in ROS Statement are negative. Past Medical History Past Medical History: Asthma Additional Past Medical History / Comment(s): migraines, HPV, Polycystic Ovarian Syndrome History of Any Multi-Drug Resistant Organisms: MRSA Date of last positivie culture/infection: 2019 MDRO Source:: right knee Past Surgical History: Hysterectomy Additional Past Surgical History / Comment(s): oral surgery Past Anesthesia/Blood Transfusion Reactions: No Reported Reaction Additional Past Anesthesia/Blood Transfusion Reaction / Comment(s): HAS NEVER RECEIVED ANESTHESIA. Past Psychological History: Anxiety, Depression, PTSD Smoking Status: Current every day smoker Past Alcohol Use History: Occasional Past Drug Use History: None Reported - Past Family History Mother Family Medical History: No Reported History General Exam Limitations: no limitations General appearance: alert, in no apparent distress Head exam: Present: atraumatic, normocephalic Eye exam: Present: normal appearance, PERRL ENT exam: Present: normal exam, normal oropharynx Neck exam: Present: normal inspection. Absent: tenderness Respiratory exam: Present: normal lung sounds bilaterally. Absent: respiratory distress, wheezes, rales, rhonchi, stridor Cardiovascular Exam: Present: regular rate, normal rhythm GI/Abdominal exam: Present: soft. Absent: distended, tenderness, guarding Extremities exam: Present: normal inspection, normal capillary refill. Absent: pedal edema Neurological exam: Present: alert, oriented X3, CN II-XII intact. Absent: motor sensory deficit Psychiatric exam: Present: normal affect, normal mood Skin exam: Present: warm, dry, intact. Absent: cyanosis, diaphoretic Course Vital Signs 12/29/22 22:54 Temperature 98.4 F Pulse Rate 95 Respiratory 18 Rate Blood Pressure 147/94 O2 Sat by Pulse 99 Oximetry - Reevaluation(s) Reevaluation #1: 12/30/22 00:11 Patient advised to discontinue cefdinir and follow-up with the primary care provider Medical Decision Making - Medical Decision Making Was pt. sent in by a medical professional or institution (, PA, SHINGLE GRADER, urgent care, hospital, or fci...) When possible be specific @ -No Did you speak to anyone other than the patient for history (EMS, parent, family, police, friend...)? What history was obtained from this source @ -No Did you review nursing and triage notes (agree or disagree)? Why? @ -I reviewed and agree with nursing and triage notes Were old charts reviewed (outside hosp., previous admission, EMS record, old EKG, old radiological studies, urgent care reports/EKG's, fci records)? Report findings @ -No old charts were reviewed Differential Diagnosis (chest pain, altered mental status, abdominal pain women, abdominal pain men, vaginal bleeding, weakness, fever, dyspnea, syncope, headache, dizziness, GI bleed, back pain, seizure, CVA, palpatations, mental health, musculoskeletal)? @ -Suspected ALLERGIC reaction EKG interpreted by me (3pts min.). @ -As above X-rays interpreted by me (1pt min.). @ -None done CT interpreted by me (1pt min.). @ -None done U/S interpreted by me (1pt. min.). @ -None done What testing was considered but not performed or refused? (CT, X-rays, U/S, labs)? Why? @ -None What meds were considered but not given or refused? Why? @ -None Did you discuss the management of the patient with other professionals (asael gao i.e. , PA, SHINGLE GRADER, lab, RT, psych nurse, social media marketer, naval special warfare medic, teacher, nuclear security officer, case management associate)? Give summary @ -No Was smoking cessation discussed for >3mins.? @ -No Was critical care preformed (if so, how long)? @ -No Were there social determinants of health that impacted care today? How? (Homelessness, low income, unemployed, alcoholism, drug addiction, transpor tation, low edu. Level, literacy, decrease access to med. care, long term, rehab)? @ -No Was there de-escalation of care discussed even if they declined (Discuss DNR or withdrawal of care, Hospice)? DNR status @ -No What co-morbidities impacted this encounter? (DM, HTN, Smoking, COPD, CAD, Cancer, CVA, ARF, Chemo, Hep., AIDS, mental health diagnosis, sleep apnea, morbid obesity)? @ -Chronic sinusitis Was patient admitted / discharged? Hospital course, mention meds given and route, prescriptions, significant lab abnormalities, going to OR and other pertinent info. @ -42-year-old female with symptoms likely related to ALLERGIC reaction after taking cefdinir. Patient given steroid and Pepcid emergency department. She taking Benadryl prior to arrival. She she is observed without further respiratory issues. She feels her percent better on reevaluation. She will discontinue antibiotic and follow-up with her primary care physician. Undiagnosed new problem with uncertain prognosis? @ -No Drug Therapy requiring intensive monitoring for toxicity (Heparin, Nitro, Insulin, Cardizem)? @ -No Were any procedures done? @ -No Diagnosis/symptom? @ ALLERGIC reaction Acute, or Chronic, or Acute on Chronic? @ -[Acute Uncomplicated (without systemic symptoms) or Complicated (systemic symptoms)? @ -default Side effects of treatment? @ -No Exacerbation, Progression, or Severe Exacerbation? @ -No Poses a threat to life or bodily function? How? (Chest pain, USA, CA, pneumonia, PE, COPD, DKA, ARF, appy, cholecystitis, CVA, Diverticulitis, Homicidal, Suicidal, threat to staff... and all critical care pts) @ -Yes, ALLERGIC reaction - Lab Data Result diagrams: 12/29/22 23:27 12/29/22 23:27 Lab Results 12/29/22 12/29/22 Range/Units 23:27 23:27 WBC 11.8 H (3.8-10.6) k/uL RBC 4.11 (3.80-5.40) m/uL Hgb 12.3 (11.4-16.0) gm/dL Hct 39.5 (34.0-46.0) % MCV 96.2 (80.0-100.0) fL MCH 30.0 (25.0-35.0) pg MCHC 31.2 (31.0-37.0) g/dL RDW 13.3 (11.5-15.5) % Plt Count 374 (150-450) k/uL MPV 7.8 Neutrophils % 78 % Lymphocytes % 17 % Monocytes % 5 % Eosinophils % 0 % Basophils % 0 % Neutrophils # 9.2 H (1.3-7.7) k/uL Lymphocytes # 2.0 (1.0-4.8) k/uL Monocytes # 0.6 (0-1.0) k/uL Eosinophils # 0.0 (0-0.7) k/uL Basophils # 0.0 (0-0.2) k/uL Sodium 135 L (137-145) mmol/L Potassium 4.2 (3.5-5.1) mmol/L Chloride 108 H (98-107) mmol/L Carbon Dioxide 17 L (22-30) mmol/L Anion Gap 10 mmol/L BUN 18 H (7-17) mg/dL Creatinine 0.56 (0.52-1.04) mg/dL Est GFR (CKD-EPI)AfAm >90 (>60 ml/min/1.73 sqM) Est GFR (CKD-EPI)NonAf >90 (>60 ml/min/1.73 sqM) Glucose 112 H (74-99) mg/dL Calcium 9.8 (8.4-10.2) mg/dL Total Bilirubin 0.4 (0.2-1.3) mg/dL AST 24 (14-36) U/L ALT 22 (4-34) U/L Alkaline Phosphatase 73 (38-126) U/L Total Protein 7.5 (6.3-8.2) g/dL Albumin 4.2 (3.5-5.0) g/dL Serum Alcohol <10 mg/dL Disposition Clinical Impression: Allergic reaction Disposition: HOME SELF-CARE Condition: Fair Instructions (If sedation given, give patient instructions): General Allergic Reaction (ED) Is patient prescribed a controlled substance at d/c from ED?: No Referrals: Jaun Mathews MD [Primary Care Provider] - 1-2 days Time of Disposition: 00:14
[2022-12-29 23:53] LABS: ALT 22 U/L (4-34); AST 24 U/L (14-36); African American GFR (CKD) >90 (>60 ml/min/1.73 sqM); Albumin 4.2 g/dL (3.5-5.0); Alcohol <10 mg/dL; Alkaline Phosphatase 73 U/L (38-126); Anion Gap 10 mmol/L; Blood Urea Nitrogen 18 mg/dL (7-17); Calcium 9.8 mg/dL (8.4-10.2); Carbon Dioxide 17 mmol/L (22-30); Chloride 108 mmol/L (98-107); Glucose 112 mg/dL (74-99); Non-African American GFR(CKD) >90 (>60 ml/min/1.73 sqM); Potassium 4.2 mmol/L (3.5-5.1); Sodium 135 mmol/L (137-145); Total Bilirubin 0.4 mg/dL (0.2-1.3); Total Protein 7.5 g/dL (6.3-8.2)
[2022-12-30 00:06] LABS: Basophils % (A) 0 %; Eosinophils % (A) 0 %; HCT 39.5 % (34.0-46.0); HGB 12.3 gm/dL (11.4-16.0); Lymphocytes % (A) 17 %; MCHC 31.2 g/dL (31.0-37.0); MCV 96.2 fL (80.0-100.0); Mean Platelet Volume 7.8; Monocytes # (A) 0.6 k/uL (0-1.0); Monocytes % (A) 5 %; Neutrophils # (A) 9.2 k/uL (1.3-7.7); Neutrophils % (A) 78 %; Platelet Count 374 k/uL (150-450); RBC 4.11 m/uL (3.80-5.40); RDW 13.3 % (11.5-15.5); WBC 11.8 k/uL (3.8-10.6)
== END 2022-12-30 00:59 | disposition home or self-care (01) ==
LOC: EC 22:51
DX: R06.02 Shortness of breath (principal); T36.1X5A Adverse effect of cephalosporins and other beta-lactam antibiotics, initial encounter; J45.909 Unspecified asthma, uncomplicated; F32.A Depression, unspecified; F41.9 Anxiety disorder, unspecified; F17.200 Nicotine dependence, unspecified, uncomplicated; Z79.899 Other long term (current) drug therapy; Z88.1 Allergy status to other antibiotic agents; Z91.030 Bee allergy status
CPT/HCPCS: 36415; 80053; 85025; 99283; 96374; 96375; G0480; J1100; 80320